=== PATIENT | male | born 1970 | race Caucasian/White ===

== ENCOUNTER 2020-01-23 16:13 | Outpatient (CLI) | payer OTHER, SELFPAY ==
--- NOTE | ~2020-01-23 | XR_ITS ---
EXAMINATION: XR lg joint inject/asp w image DATE: 01/23/2020 17:34 INDICATION: Right hip osteoarthritis TECHNIQUE: A time-out was performed to verify the patient's name, date of , and procedure to b e performed. The procedure including the risks, benefits, and alternatives was discussed with the pat ient. Risks discussed included bleeding and infection. The patient understood the risks and agreed to proceed. The skin overlying the right hip joint was prepped and draped in usual sterile fashion. A nesthetic was administered with 1% lidocaine subcutaneously. A 22 G needle was advanced under fluoro scopic guidance into the joint. Injection of 0.4 mL of Omnipaque 240 confirmed intra-articular posit ion of the needle. Subsequently, injectate consisting of 1 mL of a 4:1 mixture of 1% lidocaine: 80 m g/mL Depo-Medrol for a total dose of 80 mg Depo-Medrol was instilled. Washout of contrast was seen co nfirming intra-articular administration. The needle was removed and the entry site was cleaned and dr essed. There were no immediate complications. Fluoroscopy exposure time was 0.1 minutes. The total n umber of images was 2. FINDINGS: Real-time fluoroscopy demonstrates the needle in the right hip joint. Patient's pain prior to procedure:12/26. Patient's pain following the procedure: 08/26. IMPRESSION: 1. Right hip injection of local anesthetic and steroid with decrease in the patient's presenting pain . Reviewed, dictated and finalized at location A. IMPRESSION: 1. Right hip injection of local anesthetic and steroid with decrease in the pat ient's presenting pain.
== END 2020-01-23 16:14 | disposition home or self-care (01) ==
LOC: ANHIMG 16:16
PROVIDERS: PCP Family Medicine; Visit Provider Physician Assistant Surgical
DX: M16.11 Unilateral primary osteoarthritis, right hip (principal)
CPT/HCPCS: 20610; 77002; J1040; Q9966

== ENCOUNTER → 2022-06-17 15:12 | Outpatient (CLI) | payer OTHER, SELFPAY ==
--- NOTE | ~2022-06-17 | CT_ITS ---
EXAMINATION: CT abdomen pelvis wo con DATE: 06/17/2022 15:31 INDICATION: Right flank pain TECHNIQUE: Computed tomography (CT) of the abdomen and pelvis was performed without intravenous contr ast. The dose-length product (DLP) was 747.80 mGy-cm. Automated exposure control and iterative recons truction technique were employed. COMPARISON: 02/07/2018 FINDINGS: The lung bases are clear. The heart size is normal. The liver is diffusely low in attenuati on when compared with the spleen, consistent with hepatic steatosis. The spleen, pancreas, gallbladde r, and adrenal glands are normal. The left kidney is unremarkable. There is a 2 mm nonobstructing sto ne of the right kidney lower pole. There is a 5 mm stone of the distal right ureter. No pathologicall y enlarged abdominal or pelvic lymph nodes are identified. There is no free intraperitoneal gas or ev idence of bowel obstruction. There are bilateral inguinal hernias containing fat. There is mild lumba r spondylosis. IMPRESSION: 1. 5 mm stone of the distal right ureter. 2. Nonobstructing right nephrolithiasis. Reviewed, dictated and finalized at location B. OPERATOR
== END ==
PROVIDERS: PCP Physician Assistant; Visit Provider Physician Assistant
DX: N20.2 Calculus of kidney with calculus of ureter (principal)
CPT/HCPCS: 74176

== ENCOUNTER 2022-10-18 02:45 | Emergency (ER) | payer OTHER, SELFPAY ==
--- NOTE | ~2022-10-18 | CT_ITS ---
Non-contrast CT scan of the Abdomen and Pelvis Clinical indication: Kidney stone Technique: 2.5 mm axial scans were obtained through the abdomen and pelvis without intravenous or or al contrast. Dose reduction technique was used on this scan by utilizing automated exposure control a nd iterative reconstruction technique. The dose-length product (DLP) was 302.62 mGy-cm. COMPARISON: 06/17/2022 Findings: Images through the lung bases reveal no abnormalities. There is a 6 mm stone at the right UVJ, with minimal fullness the right renal collecting system and r ight ureter. Additional 3 mm nonobstructing right lower pole renal stone present. No left renal or le ft ureteral stone. No left hydronephrosis. There is fatty infiltration of liver. The spleen, pancreas, gallbladder, and adrenals appear normal. There is no aortic aneurysm. There is no evidence of bowel obstruction. Images through the pelvis were performed. There is no evidence of ascites or lymphadenopathy. Urinary bladder is otherwise unremarkable. Prostate gland and seminal vesicles are unremarkable. Impression: 6 mm stone at the right UVJ, with minimal fullness of the right renal collecting system/right ureter. This is probably the same stone that was in the distal right ureter on prior exam from 06/17/2022. 3 mm nonobstructing right lower pole renal stone. Fatty infiltration of liver. Reviewed, dictated and finalized at [facility]. Impression: 6 mm stone at the right UVJ, with minimal fullness of the right renal collectin g system/right ureter. This is probably the same stone that was in the distal r ight ureter on prior exam from 06/17/2022. 3 mm nonobstructing right lower pole renal stone. Fatty infiltration of liver.
[2022-10-18 02:50] VITALS: BP 143/96; PULSE 76; RESP 14; TEMP 36.7; O2SAT 100
[2022-10-18 03:36] LABS: Basophils Percent Auto 0.5 % (0.2-1.2); Eosinophils Absolute Auto 0.2 K/mm3 (0-0.3); Eosinophils Percent Auto 3.7 % (0-4.4); Hematocrit 45.2 % (42.0-52.0); Hemoglobin 15.3 g/dL (14.0-18.0); Immature Granulocyte Absolute 0.03 K/mm3 (0.00-0.031); Immature Granulocyte Percent A 0.5 % (0-0.5); Lymphocytes Absolute Auto 1.65 K/mm3 (0.9-3.2); Lymphocytes Percent Auto 25.6 % (18.3-44.2); Mean Corpuscular HGB Conc 33.8 g/dl (32-36); Mean Corpuscular Hemoglobin 29.9 pg (26-34); Mean Corpuscular Volume 88.5 fl (80-100); Mean Platelet Volume 9.3 fl (7.4-10.4); Monocytes Absolute Auto 0.7 K/mm3 (0.1-0.6); Monocytes Percent Auto 10.4 % (2.6-8.5); Neutrophils Absolute Auto 3.8 K/mm3 (1.3-6.7); Neutrophils Percent Auto 59.3 % (45.5-73.1); Platelet Count Result 189 k/mm3 (150-375); Red Blood Count 5.11 M/mm3 (4.6-6.20); Red Cell Distribution Width 12.7 % (11.5-14.5); White Blood Count 6.5 K/mm3 (4.5-10.0)
[2022-10-18 03:47] LABS: Alanine Aminotransferase 45 U/L (6-50); Albumin Level 4.3 g/dL (3.5-5.1); Alkaline Phosphatase 53 U/L (38-126); Anion Gap 7 mmol/L (8-16); Aspartate Amino Transferase 29 U/L (17-59); Bilirubin,Total 0.7 mg/dL (0.2-1.3); Blood Urea Nitrogen 17 mg/dL (9-20); Calcium 8.7 mg/dL (8.4-10.2); Carbon Dioxide 29 mmol/L (22-30); Chloride 103 mmol/L (98-107); Estimated CRCL calculation 77 ml/min; Estimated Glomerular Filt Rate > 60; Glucose 103 mg/dL (65-110); Lipase 115 U/L (23-300); Potassium 3.8 mmol/L (3.4-5.0); Sodium 139 mmol/L (137-145)
[2022-10-18 03:48] LABS: Bacteria Urine None Seen /hpf; Need Manual Microscopic Reviewed; Squamous Epithelial Cell Urine None seen /hpf (Few); WBC Urine 0-5 /hpf
[2022-10-18 03:51] LABS: Appearance Urine Clear (Clear); Bilirubin Urine 1+ (Negative); Blood Urine 2+ (Negative); Color Urine Orange (Yellow); Glucose Urine UA Trace mg/dL (Negative); Ketones Urine Negative (Negative); Leukocyte Esterase Ur Negative LEU/UL (Negative); Nitrate Urine Positive (Negative); Protein Urine 2+ mg/dL (Negative); Specific Grav Ur >= 1.030 (1.001-1.035)
[2022-10-18 03:53] LABS: Add Urine Microscopic? YES
--- NOTE | 2022-10-18 06:21 | ED.GENADULT ---
HPI - General Adult General Chief complaint: Urogenital-Male Stated complaint: Kidney stones? Time Seen by Provider: 10/18/22 03:22 History of Present Illness HPI narrative: This is a 52-year-old male with history of kidney stones presenting ED with right-sided flank pain that is sharp, wraps around into the front of his abdomen, 10 out 10 intensity and comes and goes. Feels like he has kidney stones. There are no exacerbating or alleviating factors. He has had 3 episodes of vomiting. No fevers, he has the urge to pee but no dysuria. He has a urologist with Dr. Peterson. 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 Surgical History Surgical History History of left inguinal hernia repair Family History Family History Sibling Depression Father Hypertension Family history of elevated blood lipids Mother Hypertension Family history of elevated blood lipids Grandparent Family history of cardiovascular disease Other Diabetes mellitus Social History Social History Smoking status: Never smoker Second hand tobacco smoke exposure: No Alcohol intake: current Alcohol use details: Rarely Substance use type: does not use Living arrangements: with family Occupation/Education: occupation Gender identity (if verbalized by the patient): Male Spiritual care concerns: No Agree to blood products: Yes Exam Narrative: APPEARANCE: No apparent distress. Head: atraumatic. EYES: EOMI, NOSE: Atraumatic NECK: Trachea midline RESPIRATORY: No increased rate of breathing CTAB CARDIOVASCULAR: RRR, ABDOMINAL: Non-distended, soft no guarding or rebound, no CVA tenderness MUSCULOSKELETAl: No obvious deformities NEURO: Alert. Moving 4/4 extremities SKIN:: Warm, dry. Normal color PSYCHIATRIC: Normal affect Course Vital Signs Vital signs: Vital Signs Temperature 98.1 F 10/18/22 02:50 Pulse Rate 76 10/18/22 02:50 Respiratory Rate 14 10/18/22 02:50 Blood Pressure 143/96 H 10/18/22 02:50 Pulse Oximetry 100 10/18/22 02:50 Oxygen Delivery Room Air 10/18/22 02:50 Temperature 98.1 F 10/18/22 02:50 Pulse Rate 76 10/18/22 02:50 Respiratory Rate 14 10/18/22 02:50 Blood Pressure 143/96 H 10/18/22 02:50 Pulse Oximetry 100 10/18/22 02:50 Oxygen Delivery Room Air 10/18/22 02:50 Medical Decision Making MDM Narrative Medical decision making narrative: -Presentation: 52-year-old male presenting ED with pain concerning for kidney stone. Lab work urinalysis and CT been ordered. Patient has been given symptomatic treatment. 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 Lives with his Yon. -External Chart Review: Previous primary care clinic notes -Hx from independent Sources: at bedside -Discussion of Management/Consultants: none -Independent interpretation of studies: CBC was within normal limits metabolic panel was unremarkable. urine was not indicative of infection. Patient has been taking his 's phenazopyridine which colored his urine orange. CT abdomen pelvis showed a 7 mm stone in the right UVJ with mild upstream
[2022-10-18 06:51] VITALS: BP 118/79; PULSE 84; RESP 18; TEMP 36.6; O2SAT 99
== END 2022-10-18 06:52 | disposition home or self-care (01) ==
PROVIDERS: Emergency Provider Emergency Medicine; PCP Family Medicine
DX: N20.2 Calculus of kidney with calculus of ureter (principal); M19.90 Unspecified osteoarthritis, unspecified site; Z87.442 Personal history of urinary calculi; K76.0 Fatty (change of) liver, not elsewhere classified
CPT/HCPCS: 36415; 74176; 80053; 81001; 83690; 85025; 99284

== ENCOUNTER → 2022-11-21 15:33 | Outpatient (CLI) | payer OTHER, SELFPAY ==
--- NOTE | ~2022-11-21 | XR_ITS ---
EXAMINATION: XR abdomen/kub 1V INDICATION: Right kidney stone TECHNIQUE: Supine views of the abdomen were obtained on 2 radiographs. COMPARISON: CT, 10/18/2022 FINDINGS: There is a 3 mm stone of the right kidney lower pole. The previously described 6 mm stone a t the right ureterovesicular junction is not definitely identified. The bowel gas pattern is normal. There is mild osteoarthritis of the hips. IMPRESSION: 1. Previously described right ureterovesicular junction stone not definitely identified. 2. Right nephrolithiasis. Reviewed, dictated and finalized at location F. IMPRESSION: 1. Previously described right ureterovesicular junction stone not definitely id entified. 2. Right nephrolithiasis.
== END ==
PROVIDERS: PCP Family Medicine; Visit Provider Urology
DX: N20.0 Calculus of kidney (principal)
CPT/HCPCS: 74018

== ENCOUNTER → 2023-03-28 15:16 | Outpatient (CLI) | payer OTHER, SELFPAY ==
--- NOTE | ~2023-03-28 | XR_ITS ---
EXAMINATION: XR abdomen/kub 1V INDICATION: Right-sided kidney stone, flank pain TECHNIQUE: Supine views of the abdomen were obtained on 2 radiographs. COMPARISON: 11/21/2022 FINDINGS: A 3 mm stone of the right kidney lower pole is again noted. No additional urolithiasis is i dentified. The bowel gas pattern is normal. The visualized lung bases are clear. There is mild osteoa rthritis of the hips. IMPRESSION: 1. Right nephrolithiasis. Reviewed, dictated and finalized at location F. IMPRESSION: 1. Right nephrolithiasis.
== END ==
PROVIDERS: PCP Urology; Visit Provider Urology
DX: N20.0 Calculus of kidney (principal)
CPT/HCPCS: 74018

== ENCOUNTER 2023-04-08 05:34 | Emergency (ER) | payer OTHER, SELFPAY ==
[2023-04-08] VITALS (8 sets, daily range): BP systolic 151–160; BP diastolic 97–105; PULSE 82; RESP 15; TEMP 36.3; O2SAT 97–100
--- NOTE | ~2023-04-08 | XR_ITS ---
XR lumbar spine 2-3V 04/08/2023 08:13 Indication: Back pain. Sciatica. Procedure: 3 views lumbar spine Comparison: 03/28/2019 Findings: Vertebral body heights are maintained. Normal lumbar lordosis. No acute fracture or traumat ic malalignment. No evidence for spondylolisthesis. Pedicles intact. There are small marginal osteoph ytes at L2-3 and L3-4. Sacral foramen are symmetric. Impression: 1: Mild lumbar spondylosis. Reviewed, dictated and finalized at location A. Impression: 1: Mild lumbar spondylosis.
--- NOTE | 2023-04-08 05:50 | PC.NURSE ---
Pt c/o burning pain down bilat legs. States was seen by PMD yesterday and give RX for gabapentin, but was afraid of the side effects so did not pick it up. Pt ambulatory to tx room from waiting room. Denies any saddle numbness.
--- NOTE | 2023-04-08 07:11 | PC.NURSE ---
Report to KERA Olvera
[2023-04-08] MEDS: SODIUM CHLORIDE 0.9% IV 1,000 ML 999 ML IV CONT (07:43)
[2023-04-08] MEDS: KETOROLAC 30 MG/ML VIAL (*BKC) IV PUSH (07:44)
[2023-04-08] MEDS: diazePAM INJ (*CRX) 10 MG/2 ML SYRINGE 5 MG IV PUSH (07:44)
[2023-04-08 07:54] LABS: Basophils Absolute Auto 0.1 K/mm3 (0.0-0.1); Basophils Percent Auto 0.5 % (0.2-1.2); Eosinophils Absolute Auto 0.2 K/mm3 (0-0.3); Eosinophils Percent Auto 2.1 % (0-4.4); Hematocrit 43.4 % (42.0-52.0); Hemoglobin 14.3 g/dL (14.0-18.0); Immature Granulocyte Absolute 0.03 K/mm3 (0.00-0.031); Immature Granulocyte Percent A 0.3 % (0-0.5); Lymphocytes Absolute Auto 3.99 K/mm3 (0.9-3.2); Lymphocytes Percent Auto 36.5 % (18.3-44.2); Mean Corpuscular HGB Conc 32.9 g/dl (32-36); Mean Corpuscular Hemoglobin 29.1 pg (26-34); Mean Corpuscular Volume 88.2 fl (80-100); Mean Platelet Volume 8.8 fl (7.4-10.4); Monocytes Absolute Auto 0.8 K/mm3 (0.1-0.6); Neutrophils Absolute Auto 5.9 K/mm3 (1.3-6.7); Neutrophils Percent Auto 53.6 % (45.5-73.1); Platelet Count Result 235 k/mm3 (150-375); Red Blood Count 4.92 M/mm3 (4.6-6.20); White Blood Count 10.9 K/mm3 (4.5-10.0)
--- NOTE | 2023-04-08 08:00 | ED.GENADULT ---
HPI - General Adult General Chief complaint: Extremity Injury, Lower Stated complaint: nerve pain in lower legs Time Seen by Provider: 04/08/23 07:00 History of Present Illness HPI narrative: Patient is a 52-year-old male who presents to the ER with reports of low back and leg pain. Patient reports 1 week ago he developed some sinus congestion and sore throat and cough. He then developed some achiness in his legs. Since then the pain is increased. He saw his PCP yesterday who prescribed him prednisone and gabapentin however one of the prescriptions was not ready so he has not picked it up yet. He has no lower extremity weakness or numbness. Pain is worse when he is laying down flat. He has been up pacing all night due to the discomfort. No trauma to the back. Has history of sciatica. No fevers or chills or sweats. No saddle anesthesia. Related Data Allergies Allergy/AdvReac Type Severity Reaction Status Date / Time milk Allergy Unknown Nausea Verified 04/08/23 05:36 naproxen Allergy Unknown Skin Verified 04/08/23 05:36 Reaction Review of Systems Review of Systems: All systems reviewed & are unremarkable except as noted in HPI and below Constitutional: Constitutional: Denies chills, Reports fatigue and Denies fever(s) ENT: Reports nasal congestion and Reports sore throat Respiratory: Respiratory: Reports cough and Denies dyspnea Gastrointestinal: Gastrointestinal: Reports no additional gastrointestinal complaints Musculoskeletal: Musculoskeletal: Reports back pain, Denies arthralgias and Denies joint swelling Comments: Bilateral leg pain Neurologic: Denies focal weakness and Denies numbness [facility] Past Medical History Medical History Chronic migraine w/o aura w/o status migrainosus, not intractable History of chicken pox Lumbar radiculopathy Polyosteoarthritis, unspecified 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 Surgical History Surgical History History of left inguinal hernia repair Family History Family History Sibling Depression Father Hypertension Family history of elevated blood lipids Mother Hypertension Family history of elevated blood lipids Grandparent Family history of cardiovascular disease Other Diabetes mellitus Social History Social History (Updated 10/20/23 @ 08:39 by Kandice Mckeon CMA) Smoking status: Never smoker Second hand tobacco smoke exposure: No Alcohol intake: current Alcohol use details: Rarely Substance use type: does not use Lack of Transportation: No Lack of Food: Never True Current Housing: I Have Housing Concerned About Future Housing: No Difficulty Paying Gas/Electric Bills: No Difficulty Paying for Meds: No Currently Unemployed: No Education: Associate Degree Difficulty w/ Childcare or Family Care: No Living arrangements: with family Occupation/Education: occupation Gender identity (if verbalized by the patient): Male Spiritual care concerns: No Agree to blood products: Yes Exam Narrative: GENERAL: Well-appearing, well-nourished, and in no acute distress. HEAD: Normocephalic, atraumatic. ENT: Mucous membranes moist. CHEST: Clear to auscultation. No respiratory distress. HEART: Regular rate and rhythm. Normal peripheral pulses. Back: No reproducible midline tenderness to the T/L-spine. Mild discomfort and SI region. EXTREMITIES: Normal range of motion. No edema. Positive straight leg raise bilaterally. SKIN: Warm, dry, no rash. NEURO: Alert and oriented x3. PSYCH: Normal mood and affect. Course Course Emergency Course: Patient ambulatory without issue throughout the ER. Patient has had Valium and Toradol but still reports he feels like he is dying despite
[2023-04-08 08:04] LABS: Alanine Aminotransferase 35 U/L (6-50); Albumin Level 4.1 g/dL (3.5-5.1); Alkaline Phosphatase 64 U/L (38-126); Anion Gap 8 mmol/L (8-16); Aspartate Amino Transferase 20 U/L (17-59); Bilirubin,Total 0.6 mg/dL (0.2-1.3); Blood Urea Nitrogen 18 mg/dL (9-20); Calcium 8.7 mg/dL (8.4-10.2); Carbon Dioxide 27 mmol/L (22-30); Chloride 100 mmol/L (98-107); Creatine Kinase 37 U/L (55-170); Estimated CRCL calculation 88 ml/min; Estimated Glomerular Filt Rate > 60; Glucose 104 mg/dL (65-110); Potassium 3.5 mmol/L (3.4-5.0); Sodium 135 mmol/L (137-145)
--- NOTE | 2023-04-08 08:38 | PC.NURSE ---
Ambulatory to bathroom with steady gait. c/o pain all over his body.
[2023-04-08] MEDS: MORPHINE SULFATE (*CRX) 4 MG/ML INJ IV PUSH (09:25)
[2023-04-08] MEDS: ONDANSETRON INJ 4 MG/2 ML VIAL IV PUSH (09:51)
== END 2023-04-08 10:27 | disposition home or self-care (01) ==
PROVIDERS: Emergency Provider Emergency Medicine; PCP Urology
DX: M54.30 Sciatica, unspecified side (principal)
CPT/HCPCS: 36415; 72100; 80053; 82550; 85025; 96361; 96374; 96375; 99284; J1885; J2270; J2405; J3360; J7030

== ENCOUNTER → 2023-04-12 08:12 | Outpatient (CLI) | payer OTHER, SELFPAY ==
--- NOTE | ~2023-04-12 | MR_ITS ---
MRI of the lumbar spine Clinical History: Sciatica Technique: Axial T2-weighted images, and sagittal T1-weighted, T2-weighted, and T2 fat-sat images wer e acquired. Findings: There is no fracture or subluxation of the lumbar spine. Vertebral bodies maintain normal h eight. No suspicious bone marrow signal abnormality seen. At L1-L2, there is no disc bulge or herniation. There is moderate to advanced facet arthropathy. No c entral canal stenosis or neural foraminal narrowing. At L2-L3, there is minimal disc bulge with moderate to severe facet arthropathy. No central canal diana nosis or definite neural foraminal narrowing. At L3-L4, there is mild disc bulge with advanced facet arthropathy. No central canal stenosis. There is mild to moderate left neural foraminal narrowing, and mild right neural foraminal narrowing. At L4-L5, there is mild disc bulge with moderate to advanced facet arthropathy. No central canal sten osis. There is moderate right neural foraminal narrowing, and mild left neural foraminal narrowing. At L5-S1, there is minimal disc bulge with moderate facet arthropathy. No central canal stenosis. The re is mild bilateral neural foraminal narrowing. Paravertebral soft tissues are unremarkable. Impression: Mild degenerative spondylosis overall, as detailed above. Reviewed, dictated and finalized at [facility]. Impression: Mild degenerative spondylosis overall, as detailed above.
== END ==
PROVIDERS: PCP Family Medicine; Visit Provider Family Medicine
DX: M54.30 Sciatica, unspecified side (principal); M43.06 Spondylolysis, lumbar region; M47.817 Spondylosis without myelopathy or radiculopathy, lumbosacral region
CPT/HCPCS: 72148

== ENCOUNTER 2024-04-08 15:27 | Outpatient (CLI) | payer OTHER, SELFPAY ==
--- NOTE | ~2024-04-08 | XR_ITS ---
XR abdomen/kub 1V 04/08/2024 15:39 INDICATION: Knee stones TECHNIQUE: KUB COMPARISON: None FINDINGS: Bowel gas pattern is normal. There is no evidence of free air, mass, organomegaly, ascites or obstruction. No abnormal calculi are seen. The bones appear intact. IMPRESSION: 1: No acute abdominal abnormality identified. Reviewed, dictated and finalized at location B.
== END 2024-04-08 15:28 | disposition home or self-care (01) ==
LOC: MICIMG 15:29
PROVIDERS: PCP Urology; Visit Provider Urology
DX: N20.0 Calculus of kidney (principal)
CPT/HCPCS: 74018

== ENCOUNTER 2024-07-27 17:10 | Emergency (ER) | payer OTHER, SELFPAY ==
[2024-07-27 18:04] VITALS: BP 137/81; PULSE 110; RESP 16; TEMP 37.1; O2SAT 98
--- NOTE | 2024-07-27 18:10 | ED.URI ---
HPI - URI/Sore Throat General Chief Complaint: Upper Respiratory Infection Stated Complaint: COUGH/CONGESTION/FACIAL PAIN/+FLU Time Seen by Provider: 07/27/24 18:08 Source: patient Mode of arrival: ambulatory Limitations: no limitations History of Present Illness HPI Narrative: Carlyle is a 54-year-old male patient presenting to the clinic today with complaints of cough, congestion, head facial pain. He reports that this has been going on for approximately 2-3 weeks. He tested positive for flu 2 weeks ago. Denies any chest pain or shortness of breath. Denies any fever MD elicited complaint: cough and nasal congestion Related Data Allergies Allergy/AdvReac Type Severity Reaction Status Date / Time naproxen Allergy Mild Hives Verified 07/27/24 17:58 milk AdvReac Intermediate Nausea Verified 07/27/24 17:58 Review of Systems Review of Systems: Pertinent positives per HPI. Patient denies any fever, chills, rash, headache, visual changes, dizziness, shortness of breath, chest pain, palpitations, nausea, vomiting, diarrhea, constipation, abdominal pain, or any urinary issues. 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 History of chicken pox Surgical History Surgical History History of left inguinal hernia repair Family History Family History Sibling Depression Father Hypertension Family history of elevated blood lipids Mother Hypertension Family history of elevated blood lipids Grandparent Family history of cardiovascular disease Other Diabetes mellitus Social History Social History Smoking status: Never smoker Second hand tobacco smoke exposure: No Alcohol intake: current Alcohol use details: Rarely Substance use type: does not use Lack of Transportation: No Lack of Food: Never True Current Housing: I Have Housing Concerned About Future Housing: No Difficulty Paying Gas/Electric Bills: No Difficulty Paying for Meds: No Currently Unemployed: No Education: Associate Degree Difficulty w/ Childcare or Family Care: No Living arrangements: with family Occupation/Education: occupation Gender identity (if verbalized by the patient): Male Spiritual care concerns: No Agree to blood products: Yes Comments At the time of my signature, I reviewed and agree with the nursing past medical, surgical, social, and family history. There is no relevant family history pertinent to the patient complaint. Exam Narrative: General: Well-developed, well nourished, in no apparent distress Head: Normocephalic, atraumatic Eyes: Pupils equally round and reactive to light bilaterally, EOM intact, sclera and conjunctive clear, no discharge, lids normal Ears: TMs intact and clear, ear canals clear, no drainage, grossly hearing normal. Nose: Nares patent, green nasal discharge, severe inflammation maxilla sinus tenderness. Mouth: Oral pharynx red without lesions or masses, good dentition, MMM. Postnasal drip Neck: Supple, trachea midline, no enlargement of anterior or posterior cervical nodes, no thyroid masses or goiter palpable. Cardio: Regular rate and rhythm, s1 and s2 normal, no murmur appreciated. Resp: Clear to auscultation bilaterally, no rhonchi, rales, wheezing or rubs Course Course Emergency Course: Portions of this record may have been created with voice recognition software. Level of Care: Express Care Visit Vital Signs Vital signs: Vital Signs Temperature 37.1 C 07/27/24 18:04 Pulse Rate 110 H 07/27/24 18:04 Respiratory Rate 16 07/27/24 18:04 Blood Pressure 137/81 07/27/24 18:04 Pulse Oximetry 98 07/27/24 18:04 Temperature 37.1 C 07/27/24 18:04 Pulse Rate 110 H 07/27/24 18:04 Respiratory Rate 16 07/27/24 18:04 Blood Pressure 137/81 07/27/24 18:04 Pulse Oximetry 98 07/27/24 18:04 Vital signs reviewed MDM - URI/Sore Throat MDM Narrative Medical decision making narrative: At the time of visit patient is resting comfortably on the exam table. Patient appears to be nontoxic. Plan: I suspect patient has acute bacterial rhinosinusitis. Prescription for Augmentin and prednisone was sent to the pharmacy. Supportive measures were discussed with the patient and they voiced understanding discharge instructions and agrees to treatment plan. Return precautions reviewed Differential Diagnosis Differential diagnosis: Likely upper respiratory infection, otitis media, sinusitis, viral infection, bronchitis, influenza, pharyngitis and other (COVID) Discharge Plan Discharge Clinical Impression: Acute bacterial rhinosinusitis Patient Disposition: Home, Self-Care Condition: Stable Instructions: Antibiotic Form, Rhinosinusitis (ED) Additional Instructions: Take prescription medications only as prescribed-Augmentin and prednisone Increase fluids and stay well hydrated Tylenol/motrin for pain/fever Flonase and OTC antihistamines as directed Vicks vapor rub to open sinuses Sinus rinses for congestion Cepacol spray, cough drops, throat lozenges, warm tea with honey/lemon, gargle salt water to soothe throat BRAT diet for diarrhea Clear liquids x 24 hours then advance as tolerated for nausea/vomiting Go to the ED if you develop a worsening in your condition- high fever not controlled by Tylenol or Motrin, dehydration, weakness, lethargy, shortness of breath, or chest pain. Follow up with your PCP in 3-5 days if symptoms persist. Patient Language: Afghan Prescriptions: New prednisone 20 mg tablet 40 mg PO DAILY 5 Days Qty: 10 0RF amoxicillin-pot clavulanate 875-125 mg tablet 1 tablet PO Q12H 10 Days Qty: 20 0RF No Action fluticasone propionate 50 mcg/actuation spray,suspension 2 spray intranasal DAILY 90 Days Qty: 48 3RF Rx Instructions: administer into each nostril oseltamivir 75 mg capsule 75 mg PO BID Qty: 10 0RF diclofenac sodium [Arthritis Pain (diclofenac)] 1 % gel 4 g topical QID Qty: 100 5RF Rx Instructions: apply to affected area cyclobenzaprine 10 mg tablet See Rx Instructions .ROUTE .COMPLEX Qty: 60 2RF Dose Instruction: TAKE 1 TABLET BY MOUTH THREE TIMES DAILY NEEDED FOR MUSCLE SPASM Rx Instructions: TAKE 1 TABLET BY MOUTH THREE TIMES DAILY NEEDED FOR MUSCLE SPASM diclofenac sodium 75 mg tablet,delayed release (DR/EC) 75 mg PO BID Qty: 180 1RF Follow-up/Referrals: Ayan Mclaughlin MD [Primary Care Provider] - Time of Disposition: 18:11 Quality NIHSS Nursing Documentation ED NIHSS nursing documentation: reviewed/agree
== END 2024-07-27 18:14 | disposition home or self-care (01) ==
PROVIDERS: Emergency Provider Nurse Practitioner Family; PCP Family Medicine
DX: J01.90 Acute sinusitis, unspecified (principal); M15.9 Polyosteoarthritis, unspecified
CPT/HCPCS: 99213; G0463

== ENCOUNTER 2024-08-04 00:13 | Emergency (ER) | payer OTHER, SELFPAY ==
--- NOTE | ~2024-08-04 | CT_ITS ---
CLINICAL INDICATION: Left flank pain and vomiting COMPARISON: 10/18/2022. TECHNIQUE: Multiple contiguous axial images of the abdomen and pelvis were performed following the ad ministration of with 100 mL Omnipaque-350 intravenous contrast The dose-length product (DLP) was 872.30 mGy-cm. Automated exposure control and iterative reconstruction technique were employed. FINDINGS/OBSERVATIONS: Visualized lower thorax: The bilateral lung bases are clear. The heart is of normal size, without pericardial effusion. Small hiatal hernia is present. Liver: The liver is decreased in attenuation and increased in size measuring 21 cm in longitudinal dimension . Gallbladder and biliary system: The gallbladder is only minimally distended, and otherwise unremarkable. Pancreas: The pancreas enhances homogeneously without ductal dilatation. Spleen: The spleen enhances homogeneously and is not enlarged measuring 8 cm in longitudinal dimension. Kidneys: Left-sided hydroureteronephrosis with global enlargement of the left kidney extending into the bladde r where a 3 mm calculus is identified. The right kidney and ureter are unremarkable. Adrenal glands: Unremarkable. Gastrointestinal tract: Trace fecal stasis. Appendix: The appendix is not definitively visualized. However, no pericecal inflammatory change is identified suggest the presence of acute appendicitis. Vasculature: Unremarkable. No aneurysmal dilatation or significant stenosis. Lymph nodes: No pathologically enlarged or morphologically suspicious lymph nodes within the retroperitoneum or at the root of the mesentery. Pelvic structures: As above. The prostate gland is not enlarged. Body wall and musculoskeletal: No significant degenerative disease within the lower thoracic or lumbosacral spine. IMPRESSION: Left-sided hydroureteronephrosis secondary to a 3 mm recently passed stone, now within the bladder. Reviewed, dictated and finalized at location A. DDED SOFTWARE ENGINEER
--- OUTSIDE RECORDS SUMMARY | 2024-08-04 00:15 | XMS_ITS | Continuity of Care Document ---
Author Organization [facility] Address [address] [place] [address] [place] [phone] Phone Care Team Providers Care Upstairs Maid Name Role Phone Dylan PT,MPT,ATC, Art Unavailable [...] Diagnoses Date Provider Providers Copied on Encounter [facility] [address] [address], [place], [place], [id number], tel:[phone] [place] No Information May- 3 Dylan Schmidt , [place], [place]. Referring Provider: Abida Betancur, [address] [place] [address] , [place], [address]. tel:[id number] [place] [address] [address], [place], [place], [id number], tel:[phone] [place] No Information 3 Jaimeglmonica Wyatt. . Referring Provider: Abida Betancur, [address] [place] [address] , [place], [address]. tel:[phone] [facility] [address], [place], [place], [address], tel:[phone] [place] No Information 3 Dylan Schmidt [place], [place]. Referring Provider: Abida Betancur, [address] [place] [address] , [place], [address]. tel:[id number] [place] [address] [address], [place], [place], [address], [place] tel:[phone] [place] No Information 0 3 Dylan [place] , [place], [place]. Referring Provider: Abida Betancur, [address] [place] [address] , [place], [address]. tel:[phone] [facility], [place], [place], [address], tel:[phone] [place] No Information 3 Dylan Schmidt , [place], [place]. Referring Provider: Abida Betancur, [address] [facility] , [place], [address]. tel:[phone] [place] [address], [address], [place], [place], [address], [place] tel:[phone] [place] No Information 3 Dylan Gradyn. , [place], [place]. Referring Provider: Abida Betancur, [address] [place] [address] , [place], [address]. tel:[phone] [place] [address], [address], [place], [place], [address], [place] tel:[phone] [place] No Information 3 Richardson Art. , [place], [place]. Referring Provider: Abida Betancur, [address] [place] [address] , [place], [address]. tel:[phone] [place] [address], [address], [place], [place], [address], [place] tel:[phone] [place] No Information 3 Dylan Gradyn. , [place], [place]. Referring Provider: Abida Betancur, [address] [place] [address] , [place], [address]. tel:[phone] [place] [address], [address], [place], [place], [address], [place] tel:[phone] [place] No Information 3 Dylan Gradyn. , [place], [place]. Referring Provider: Abida Betancur, [facility] [facility] , [place], [address]. tel:[phone] [place] [address] [address], [place], [place], [address], [place] tel:[phone] [place] No Information 3 Dylan Art. , [place], [place]. Referring Provider: Abida Betancur, [address] [place] [address] , [place], [address]. tel:[phone] [place], [place] [address] [address], [place], [place], [address], [place] tel:[phone] [place] No Information 0 3 Richardson Art. , [place], [place]. Referring Provider: bAida Betancur, [address] [place] [address] , [place], [address]. tel:[phone] [facility], [address], [place], [place], [address], [place] tel:[phone] [place] No Information 0 3 Richardson Art. , [place], [place]. Referring Provider: Abida Betancur, [address] [place] [address] , [place], [address]. tel:[phone] [place] [address], [address], [place], [place], [address], [place] tel:[phone] [place] No Information 0 3 Dylan Art. , [place], [place]. Referring Provider: Abida Betancur, [address] [place] [address] , [place], [address]. tel:[phone] [place] [address], [address], [place], [place], [address], [place] tel:[phone] [place] No Information 9 Richardson Art. , [place], [place]. Referring Provider: Aly Mcmillan, [address] [place], [address]. tel:[phone] [facility], [address], [place], [place], [address], [place] tel:[phone] [place] No Information 9 Richardson Art. , [place], [place]. Referring Provider: Aly Mcmillan, [address] [place], [address]. tel:[phone] [facility], [address], [place], [place], [address], [place] tel:[phone] [place] No Information 9 BEE Ortiz, [place]. Referring Provider: Aly Mcmillan, [address] [place], [address]. tel:[phone] Family History Family Member Type Diagnosis Age At Onset No Information Payers Payer name Insurance type Covered constitution party ID Aleida smith(s) [facility] [id number] Social History Type Description Quantity Date Captured Comments Sex Male Smoking Status No Information Chief Complaint And Reason For Visit No Information Reason For Referral Reason For Referral No Information History Of Present Illness Encounter Date Complaint History Of Prese nt Illness No Information Functional Status Date Functional Assessmen t No Information Instructions Date Instruction Additional Infor mation Giving encouragement to exercise Related to Overweight Giving encouragement to exercise Related to Overweight Assessments Type Assessment Date No Information Patient Care Teams Name Effective Dates (start - stop) Status Members No Information
--- OUTSIDE RECORDS SUMMARY | 2024-08-04 00:15 | XMS_ITS | Clinical Summary ---
Author Organization [facility] Care Team Providers Care Director Product Safety Name Role Phone Unavailable Primary Care Provider Unavailabl e Allergies Active Allergy Reactions Criticality Noted Date Comments Naproxen Unknown Nabumetone Unknown Medications atenolol (TENORMIN) 25 MG Tablet Take 25 mg by mouth. Active Cetirizine HCl (ZYRTEC PO) Take by mouth. Active cyclobenzaprine (FLEXERIL) 10 MG Tablet Take 10 mg by mouth. Active fluticasone (FLONASE) 50 MCG/ACT Suspension SPRAY 2 SPRAYS TO EACH NOSTRIL EVERY DAY 16 g 3 06/05/2015 Active Active Problems No known active problems Immunizations Immunization Administration Dates Next Due Influenza Vaccine greater than 3 yrs 03/19/2014 TDAP Vaccine 06/19/2013 Social History Tobacco Use Types Packs/Day Years Used Date Smoking Tobacco: Never Assessed Sex and Gender Information Value Date Recorded Sex Assigned at Not on file Legal Sex Male 10:20 PM CDT Gender Identity Not on file Sexual Orientation Not on file Plan of Treatment Health Maintenance Due Date Last Done Comments Hepatitis C Virus (HCV) Screening 1968 Hepatitis B Immunization (1 of 3 - 19+ 3-dose series) 1987 Colonoscopy 2013 Colorectal Cancer Screening 2013 Cologuard 2018 Immunochemical Fecal Occult Blood 2018 Pneumococcal Immunization (5 0+ years) (1 of 1 - PCV) 2018 Zoster Immunization (1 of 2) 2018 PSA Discussion 2023 Influenza Immunization (#1) 2024 03/19/2014 SARS-COV-2 Immunization ( - season) 2024 Respiratory Syncytial Virus (RSV) Immunization (Adult) (1 - 1-dose 75+ series) 2043 DTaP/Tdap/Td Immunization Discontinued 06/19/2013 Meningococcal Immunization (ACWY) Aged Out No longer eligible based on patient's age to complete this topic Pneumococcal Immunization Combined Aged Out No longer eligible based on patient's age to complete this topic Rotavirus Immunization Aged Out No lo nger eligible based on patient's age to complete this topic
--- OUTSIDE RECORDS SUMMARY | 2024-08-04 00:15 | XMS_ITS | Continuity of Care Document ---
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 [address] [facility], [address] [address], [place], [place], [id number], [place]. tel:[phone] Rating Letter [facility], [address] [address], [place], [place], [id number], [place] tel:[phone] [facility] [employer] [facility] No Information 2 Allison Botello. [address] [facility], [facility] [address], [place], [place], [id number], [place]. tel:[phone] [facility] [employer] [facility], [address] [place] [address], [place], [place], [id number], [place] tel:[phone] [facility] [employer] [facility] No Information 1 Administrativ e Provider. [address] [address], [place], [place], [id number], [place]. tel:[phone] Office/outpa tient visit,est, mod [facility], [address] [address], [place], [place], [id number], [place] tel:[phone] [facility] [employer] [facility] LOC PRIM OSTEOART-SHLD ERSHOULDER REGION DIS NECSPRAIN ROTATOR CUFF 1 Allison Botello. [address] [facility], [address] [address], [place], [place], [id number], [place]. tel:[phone] [facility] [employer] [facility], [address] [address], [place], [place], [id number], [place] tel:[phone] [facility] [employer] [facility] SPRAIN ROTATOR CUFFSHOULDER REGION DIS NECLOC PRIM OSTEOART-SHLD ER 1 Allison Botello. [address] [facility], [address] [address], [place], [place], [address], [place]. tel:[phone] [facility] [employer] [facility], [address], [id number], [place] tel:[phone] [facility] [employer] [facility] LOC PRIM OSTEOART-SHLD ERSHOULDER REGION DIS NECSPRAIN ROTATOR CUFF Sep-2 6 1 Allison Botello. [address] [facility], [address] [address], [place], [place], [id number], [place]. tel:[phone] [facility], [address] [address], [place], [place], [id number], [place] tel:[phone] [facility] SPRAIN ROTATOR CUFFSHOULDER REGION DIS NECLOC PRIM OSTEOART-SHLD ER Sep-1 2- 1 Allison Botello. [address] [facility], [facility] [place] [address], [place], [place], [id number], [place]. tel:[phone] [facility], [address] [address], [place], [place], [id number], [place] tel:[phone] [facility] LOC PRIM OSTEOART-SHLD ERSHOULDER REGION DIS NECSPRAIN ROTATOR CUFF Aug-2 1 Allison Botello. [address] [facility], [address] [address], [place], [place], [id number], [place]. tel:[phone] [facility] [employer] [facility], [address] [address], [place], [place], [id number], [place] tel:[phone] [facility] SPRAIN ROTATOR CUFFSHOULDER REGION DIS NECLOC PRIM OSTEOART-SHLD ER Jan-0 1 Allison Botello. [address] [facility], [address] [address], [place], [place], [id number], [place]. tel:[phone] [facility], [address] [address], [place], [place], [id number], [place] tel:[phone] [facility] SPRAIN ROTATOR CUFFSHOULDER REGION DIS NECLOC PRIM OSTEOART-SHLD ER 1 Allison Botello. [address] [facility], [address] [address], [place], [place], [address], [place]. tel:[phone] Office consultation , [facility], [address] [address], [place], [place], [address], [place] tel:[phone] [facility] SPRAIN ROTATOR CUFFJOINT PAIN-SHLDER 1 Temistephani Botello. [address] [facility], [address], [place], [place], [id number], [place]. tel:[phone] Family History Family Member Type Diagnosis Age At Onset No Information Payers Payer name Insurance type Covered constitution party ID Authoriza tion(s) No Information Social [...]
[2024-08-04 00:24] VITALS: BP 155/94; PULSE 78; RESP 20; TEMP 36.9; O2SAT 97
--- NOTE | 2024-08-04 00:56 | ED_ITS ---
HPI - Back Pain/Injury General Chief Complaint: Back Pain/Injury <Art Mccarthy PA-C - Last Filed: 08/04/24 14:01> Stated Complaint: left flank pain <EDY Finnegan Last Filed: 08/04/24 14:01> Time Seen by Provider: 08/04/24 00:55 <Art Mccarthy PA-C - Last Filed: 08/04/24 14:01> Source: patient <EDY Finnegan Last Filed: 08/04/24 14:01> Mode of arrival: ambulatory <EDY Finnegan Last Filed: 08/04/24 14:01> Limitations: no limitations <EDY Finnegan Filed: 08/04/24 14:01> History of Present Illness HPI Narrative: This is a 54-year-old male who presents to the ED for chief complaint of sudden-onset left flank pain beginning around 8:00 a.m. this evening. Patient states that he has radiating pain from left flank to left anterior abdomen. States this pain is similar to kidney stone pain he has had in the past on the right side. Denies recent illness. Denies fevers, chills, issues with bowel movements. <Art Mccarthy PA-C Last Filed: 08/04/24 14:01> Related Data Allergies/Adverse Reactions: Allergies Allergy/AdvReac Type Severity Reaction Status Date / Time naproxen Allergy Mild Hives Verified 08/04/24 00:29 milk AdvReac Intermediate Nausea Verified 08/04/24 00:29 <Art Mccarthy PA-C - Last Filed: 08/04/24 14:01> Review of Systems 2 Review of Systems: All systems as dictated in HPI <EDY Finnegan Last Filed: 08/04/24 14:01> [facility] Past Medical History Medical History: Medical History Chronic migraine w/o aura w/o status migrainosus, not intractable Lumbar radiculopathy Polyosteoarthritis, unspecified 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 History of chicken pox <Art Mccarthy PA-C - Last Filed: 08/04/24 14:01> Surgical History Surgical History: Surgical History History of left inguinal hernia repair <Art Mccarthy PA-C - Last Filed: 08/04/24 14:01> Family History Family History: Family History Sibling Depression Father Hypertension Family history of elevated blood lipids Mother Hypertension Family history of elevated blood lipids Grandparent Family history of cardiovascular disease Other Diabetes mellitus <EDY Finnegan Last Filed: 08/04/24 14:01> Social History Social History: Social History Smoking status: Never smoker Second hand tobacco smoke exposure: No Alcohol intake: current Alcohol use details: Rarely Substance use type: does not use Lack of Transportation: No Lack of Food: Never True Current Housing: I Have Housing Concerned About Future Housing: No Difficulty Paying Gas/Electric Bills: No Difficulty Paying for Meds: No Currently Unemployed: No Education: Associate Degree Difficulty w/ Childcare or Family Care: No Living arrangements: with family Occupation/Education: occupation Gender identity (if verbalized by the patient): Male Spiritual care concerns: No Agree to blood products: Yes <Art Mccarthy PA-C - Last Filed: 08/04/24 14:01> Exam 2 Narrative: GENERAL: Patient actively vomiting in the bathroom next door. When he returns to the room, he is exhibiting renal colic. HEAD: Normocephalic, atraumatic. EYES: PERRLA and EOMI. ENT: Nares clear, no rhinorrhea or epistaxis. Mucous membranes moist. Oropharynx without tonsillar hypertrophy exudate or other lesions. NECK: Supple. No adenopathy or masses. CHEST: No respiratory distress. Clear to auscultation. No wheezes rales or rhonchi HEART: Regular rate and rhythm. No murmur heard. Normal peripheral pulses. ABDOMEN: Left flank tenderness present. Negative right flank tenderness. Soft, otherwise nontender, nondistended, normal active bowel sounds. MSK: Normal range of motion. No edema. SKIN: Warm, dry, no rash. NEURO: Alert and oriented x4. No focal deficits. PSYCH: Normal mood and affect. <Art Mccarthy PA-C - Last Filed: 08/04/24 14:01> Course Course Emergency Course: ZYCH: Patient signed out pending CT imaging. CT showed a 2 mm stone UVJ. Urine not indicative infection. Pain was controlled in the ED. Patient given appropriate medications and discharged with urology follow-up <Eliseo Godoy MD - Last Filed: 08/04/24 03:45> Vital Signs Vital signs: Vital Signs Temperature 98.4 F 08/04/24 00:24 Pulse Rate 78 08/04/24 00:24 Respiratory Rate 20 08/04/24 00:24 Blood Pressure 155/94 H 08/04/24 00:24 Pulse Oximetry 97 08/04/24 00:24 Oxygen Delivery Room Air 08/04/24 00:24 Temperature 98.4 F 08/04/24 00:24 Pulse Rate 71 08/04/24 02:27 Respiratory Rate 18 08/04/24 02:27 Blood Pressure 142/81 H 08/04/24 02:27 Pulse Oximetry 99 08/04/24 02:27 Oxygen Delivery Room Air 08/04/24 00:24 <Art Mccarthy PA-C - Last Filed: 08/04/24 14:01> Vital Signs Temperature 98.4 F 08/04/24 00:24 Pulse Rate 78 08/04/24 00:24 Respiratory Rate 20 08/04/24 00:24 Blood Pressure 155/94 H 08/04/24 00:24 Pulse Oximetry 97 08/04/24 00:24 Oxygen Delivery Room Air 08/04/24 00:24 Temperature 98.4 F 08/04/24 00:24 Pulse Rate 71 08/04/24 02:27 Respiratory Rate 18 08/04/24 02:27 Blood Pressure 142/81 H 08/04/24 02:27 Pulse Oximetry 99 08/04/24 02:27 Oxygen Delivery Room Air 08/04/24 00:24 <Eliseo Godoy MD - Last Filed: 08/04/24 03:45> MDM - Back Pain/Injury MDM Narrative Medical decision making narrative: This is a 54-year-old male who presents to the ED for apparent renal colic. Vitals are normal. Over the above with left flank tenderness. Preliminary review of CT imaging shows small stone at the left UPJ. Patient will be handed off to attending Dr. Godoy pending official CT results. < Art Mccarthy PA-C - Last Filed: 08/04/24 14:01> Lab Data Result diagrams: 08/04/24 01:12 08/04/24 01:12 <Art Mccarthy PA-C - Last Filed: 08/04/24 14:01> Labs: Lab Results 08/04/24 08/04/24 Range/Units 01:12 01:49 WBC 14.0 H (4.5-10.0) K/mm3 RBC 5.12 (4.6-6.20) M/mm3 Hgb 15.4 (14.0-18.0) g/dL Hct 45.9 (42.0-52.0) % MCV 89.6 (80-100) fl MCH 30.1 (26-34) pg MCHC 33.6 (32-36) g/dl RDW 12.4 (11.5-14.5) % Plt Count 323 (150-375) k/mm3 MPV 9.2 (7.4-10.4) fl Immature Gran % (Auto) 2.6 H (0-0.5) % Neut % (Auto) 61.7 (45.5-73.1) % Lymph % (Auto) 25.7 (18.3-44.2) % Morehouse % (Auto) 7.6 (2.6-8.5) % Eos % (Auto) 1.8 (0-4.4) % Baso % (Auto) 0.6 (0.2-1.2) % Lymph # (Auto) 3.59 H (0.9-3.2) K/mm3 Morehouse # (Auto) 1.1 H (0.1-0.6) K/mm3 Eos # (Auto) 0.3 (0-0.3) K/mm3 Baso # (Auto) 0.1 (0.0-0.1) K/mm3 Abs Immat Gran (auto) 0.37 H (0.00-0.031) K/mm3 Absolute Neuts (auto) 8.6 H (1.3-6.7) K/mm3 Absolute Nucleated RBC 0.000 (0.0-0.012) K/mm3 Nucleated RBC % 0.0 (0.0-0.2) % PT 13.3 (11.1-14.7) Seconds INR 1.0 APTT 21.9 L (22.3-36.8) Seconds Sodium 142 (137-145) mmol/L Potassium 3.8 (3.4-5.0) mmol/L Chloride 103 (98-107) mmol/L Carbon Dioxide 27 (22-30) mmol/L Anion Gap 12 (4-12) mmol/L BUN 26 H (9-20) mg/dL Creatinine 1.12 (0.7-1.3) mg/dL Estim Creat Clear Calc 70 ml/min Estimated GFR > 60 (59 - ) Glucose 144 H (65-110) mg/dL Calcium 9.0 (8.4-10.2) mg/dL Total Bilirubin 0.5 (0.2-1.3) mg/dL AST 27 (17-59) U/L ALT 57 H (6-50) U/L Alkaline Phosphatase 76 (38-126) U/L Total Protein 8.0 (6.3-8.2) g/dL Albumin 4.1 (3.5-5.1) g/dL Lipase 122 (23-300) U/L Urine Color Yellow (Yellow) Urine Appearance Clear (Clear) Urine pH 7.5 (5.0-9.0) Ur Specific [place] 1.024 (1.001-1.035) Urine Protein Negative (Negative) mg/dL Urine Glucose (UA) Negative (Negative) mg/dL Urine Ketones Negative (Negative) mg/dL Ur Blood (Man) Negative (Negative) Urine Nitrate Negative (Negative) Urine Bilirubin Negative (Negative) Urine Urobilinogen 0.2 (<2.0) mg/dL Leukocyte Esterase Rfl Negative (Negative) RICCO/UL <Art Mccarthy PA-C - Last Filed: 08/04/24 14:01> Lab Results 08/04/24 08/04/24 Range/Units 01:12 01:49 WBC 14.0 H (4.5-10.0) K/mm3 RBC 5.12 (4.6-6.20) M/mm3 Hgb 15.4 (14.0-18.0) g/dL Hct 45.9 (42.0-52.0) % MCV 89.6 (80-100) fl MCH 30.1 (26-34) pg MCHC 33.6 (32-36) g/dl RDW 12.4 (11.5-14.5) % Plt Count 323 (150-375) k/mm3 MPV 9.2 (7.4-10.4) fl Immature Gran % (Auto) 2.6 H (0-0.5) % Neut % (Auto) 61.7 (45.5-73.1) % Lymph % (Auto) 25.7 (18.3-44.2) % Morehouse % (Auto) 7.6 (2.6-8.5) % Eos % (Auto) 1.8 (0-4.4) % Baso % (Auto) 0.6 (0.2-1.2) % Lymph # (Auto) 3.59 H (0.9-3.2) K/mm3 Morehouse # (Auto) 1.1 H (0.1-0.6) K/mm3 Eos # (Auto) 0.3 (0-0.3) K/mm3 Baso # (Auto) 0.1 (0.0-0.1) K/mm3 Abs Immat Gran (auto) 0.37 H (0.00-0.031) K/mm3 Absolute Neuts (auto) 8.6 H (1.3-6.7) K/mm3 Absolute Nucleated RBC 0.000 (0.0-0.012) K/mm3 Nucleated RBC % 0.0 (0.0-0.2) % PT 13.3 (11.1-14.7) Seconds INR 1.0 APTT 21.9 L (22.3-36.8) Seconds Sodium 142 (137-145) mmol/L Potassium 3.8 (3.4-5.0) mmol/L Chloride 103 (98-107) mmol/L Carbon Dioxide 27 (22-30) mmol/L Anion Gap 12 (4-12) mmol/L BUN 26 H (9-20) mg/dL Creatinine 1.12 (0.7-1.3) mg/dL Estim Creat Clear Calc 70 ml/min Estimated GFR > 60 (59 - ) Glucose 144 H (65-110) mg/dL Calcium 9.0 (8.4-10.2) mg/dL Total Bilirubin 0.5 (0.2-1.3) mg/dL AST 27 (17-59) U/L ALT 57 H (6-50) U/L Alkaline Phosphatase 76 (38-126) U/L Total Protein 8.0 (6.3-8.2) g/dL Albumin 4.1 (3.5-5.1) g/dL Lipase 122 (23-300) U/L Urine Color Yellow (Yellow) Urine Appearance Clear (Clear) Urine pH 7.5 (5.0-9.0) Ur Specific [place] 1.024 (1.001-1.035) Urine Protein Negative (Negative) mg/dL Urine Glucose (UA) Negative (Negative) mg/dL Urine Ketones Negative (Negative) mg/dL Ur Blood (Man) Negative (Negative) Urine Nitrate Negative (Negative) Urine Bilirubin Negative (Negative) Urine Urobilinogen 0.2 (<2.0) mg/dL Leukocyte Esterase Rfl Negative (Negative) RICCO/UL <Eliseo Godoy MD - Last Filed: 08/04/24 03:45> Discharge Plan Discharge Clinical Impression: Renal colic on left side <Art Mccarthy PA-C - Last Filed: 08/04/24 14:01> Patient Disposition: Home, Self-Care <Art Mccarthy PA-C - Last Filed: 08/04/24 14:01> Condition: Stable <Art Mccarthy PA-C - Last Filed: 08/04/24 14:01> Instructions: Antibiotic Form, Kidney Stones (ED) <Art Mccarthy PA-C - Last Filed: 08/04/24 14:01> Additional Instructions: You were seen in the emergency department for a kidney stone. Please use Motrin/Tylenol for pain. Use oxycodone for breakthrough pain. Use Zofran for nausea. Please follow-up with your Urologist for further management. Please return if you develop severe pain, fevers or intractable nausea and vomiting. <Art Mccarthy PA-C - Last Filed: 08/04/24 14:01> Patient Language: Sudanese <Art Mccarthy PA-C - Last Filed: 08/04/24 14:01> Prescriptions: New tamsulosin [Flomax] 0.4 mg capsule 0.4 mg PO DAILY Qty: 10 0RF ondansetron 4 mg tablet,disintegrating 4 mg PO Q8H PRN (Reason: nausea and vomiting) Qty: 10 0RF ibuprofen 800 mg tablet 800 mg PO TID PRN (Reason: pain) 7 Days Qty: 21 0RF acetaminophen 500 mg tablet 1,000 mg PO TID PRN (Reason: lisseth) 7 Days Qty: 42 0RF oxycodone 5 mg tablet 5 mg PO Q4H PRN (Reason: pain) Qty: 14 0RF No Action prednisone 20 mg tablet 40 mg PO DAILY 5 Days Qty: 10 0RF amoxicillin-pot clavulanate 875-125 mg tablet 1 tablet PO Q12H 10 Days Qty: 20 0RF fluticasone propionate 50 mcg/actuation spray,suspension 2 spray intranasal DAILY 90 Days Qty: 48 3RF Rx Instructions: administer into each nostril oseltamivir 75 mg capsule 75 mg PO BID Qty: 10 0RF diclofenac sodium [Arthritis Pain (diclofenac)] 1 % gel 4 g topical QID Qty: 100 5RF Rx Instructions: apply to affected area cyclobenzaprine 10 mg tablet See Rx Instructions .ROUTE .COMPLEX Qty: 60 2RF Dose Instruction: TAKE 1 TABLET BY MOUTH THREE TIMES DAILY NEEDED FOR MUSCLE SPASM Rx Instructions: TAKE 1 TABLET BY MOUTH THREE TIMES DAILY NEEDED FOR MUSCLE SPASM diclofenac sodium 75 mg tablet,delayed release (DR/EC) 75 mg PO BID Qty: 180 1RF <Art Mccarthy PA-C - Last Filed: 08/04/24 14:01> Follow-up/Referrals: Ruben Martinez MD [Physician] - Ayan Mclaughlin MD [Primary Care Provider] - <Art Mccarthy PA-C - Last Filed: 08/04/24 14:01>
--- OUTSIDE RECORDS SUMMARY | 2024-08-04 01:03 | XMS_ITS | Continuity of Care Document ---
Author Organization [facility] Address [address] [place] [address] [place] [id number] Phone Care Team Providers Care Property Appraiser Name Role Phone Dylan PT,MPT,ATC, Art Unavailable [...] Diagnoses Date Provider Providers Copied on Encounter [facility] [address] [address], [place], [place], [id number], tel:[phone] [place] No Information May- 3 Dylan Schmidt , [place], [place]. Referring Provider: Abida Betancur, [address] [place] [address] , [place], [address]. tel:[id number] [place] [address] [address] [facility], [place], [place], [id number], tel:[phone] [facility] No Information 3 Jaimeglmonica Wyatt. . Referring Provider: Abida Betancur, [address] [place] [address] , [place], [address]. tel:[phone] [facility] [address] [facility] [address], [place], [place], [id number], tel:[phone] [place] No Information 3 Dylan Schmidt [place], [place]. Referring Provider: Abida Betancur, [address] [place] [address] , [place], [address]. tel:[phone] [place], [place] [id number] [address], [place], [place], [id number], [place] tel:[phone] [facility] No Information 0 3 Dylan Schmidt , [place], [place]. Referring Provider: Abida Betancur, [address] [place] [address] , [place], [address]. tel:[phone] [facility], [place], [place], [address], tel:[phone] [place] No Information 3 Dylan Schmidt , [place], [place]. Referring Provider: Abida Betancur, [address] [facility] , [place], [address]. tel:[phone] [place] [address], [address], [place], [place], [address], [place] tel:[phone] [place] No Information 3 Dylan Gradyn. , [place], [place]. Referring Provider: Abida Betancur, [address] [place] [address] , [place], [address]. tel:[phone] [place] [address], [address], [place], [place], [id number], [place] tel:[phone] [place] No Information 3 Richardson Art. , [place], [place]. Referring Provider: Abida Betancur, [address] [place] [address] , [place], [address]. tel:[phone] [place] [address], [address], [place], [place], [id number], [place] tel:[phone] [place] No Information 3 Dylan Gradyn. , [place], [place]. Referring Provider: Abida Betancur, [address] [place] [address] , [place], [address]. tel:[phone] [place] [address], [address], [place], [place], [id number], [place] tel:[phone] [place] No Information 3 Dylan Gradyn. , [place], [place]. Referring Provider: Abida Betancur, [facility] [facility] , [place], [address]. tel:[phone] [place] [address] [address], [place], [place], [id number], [place] tel:[phone] [place] No Information 3 Dylan Art. , [place], [place]. Referring Provider: Abida Betancur, [address] [place] [address] , [place], [address]. tel:[phone] [place], [place] [address] [address], [place], [address], [place] tel:[phone] [place] No Information 0 3 Richardson Art. , [place], [place]. Referring Provider: Abida Betancur, [address] [place] [address] , [place], [address]. tel:[phone] [facility], [address], [place], [place], [address], [place] tel:[phone] [place] No Information 0 3 Richardson Art. , [place], [place]. Referring Provider: Abida Betancur, [address] [place] [address] , [place], [address]. tel:[phone] [place] [address], [address], [place], [place], [id number], [place] tel:[phone] [place] No Information 0 3 Dylan Art. , [place], [place]. Referring Provider: Abida Betancur, [address] [place] [address] , [place], [address]. tel:[phone] [place] [address], [address], [place], [place], [id number], [place] tel:[phone] [place] No Information 9 Richardson Art. , [place], [place]. Referring Provider: Aly Mcmillan, [address] [place], [address]. tel:[phone] [facility], [address], [place], [place], [id number], [place] tel:[phone] [place] No Information 9 Richardson Art. , [place], [place]. Referring Provider: Aly Mcmillan, [address] [place], [address]. tel:[phone] [facility], [address], [place], [place], [id number], [place] tel:[phone] [place] No Information 9 BEE Ortiz, [place]. Referring Provider: Aly Mcmillan, [address] [place], [address]. tel:[phone] Family History Family Member Type Diagnosis Age At Onset No Information Payers Payer name Insurance type Covered libertarian ID Aleida smith(s) [facility] [id number] Social History Type Description Quantity Date Captured [...]
--- OUTSIDE RECORDS SUMMARY | 2024-08-04 01:03 | XMS_ITS | Continuity of Care Document ---
Author Organization [facility] Address [address] [place] [address] Phone Care Team Providers Care Drive Tester Name Role Phone Administrative, Provider Unavailable Unavail [...] on Encounter [facility], [address], [place], [place], [id number], [place] tel:[phone] [facility] No Information 2 Administrativ e Provider. [address] [facility], [address] [address], [place], [place], [address], [place]. tel:[phone] Rating Letter [facility], [address] [address], [place], [place], [id number], [place] tel:[phone] [facility] No Information 2 Allison Botello. [address] [facility], [facility] 100, [place], [place], [address], [place]. tel:[phone] [facility], [address] [place] [address], [place], [place], [address], [place] tel:[phone] [facility] No Information 1 Administrativ e Provider. [address] [address], [place], [place], [address], [place]. tel:[phone] Office/outpa tient visit,est, mod [facility], [address] [address], [place], [place], [address], [place] tel:[phone] [facility] LOC PRIM OSTEOART-SHLD ERSHOULDER REGION DIS NECSPRAIN ROTATOR CUFF 1 Allison Botello. [address] [facility], [address] [address], [place], [place], [address], [place]. tel:[phone] [facility], [address] [address], [place], [place], [id number], [place] tel:[phone] [facility] SPRAIN ROTATOR CUFFSHOULDER REGION DIS NECLOC PRIM OSTEOART-SHLD ER 1 Allison Botello. [address] [facility], [address] [address], [place], [place], [address], [place]. tel:[phone] [facility], [address], [id number], [place] tel:[phone] [facility] LOC PRIM OSTEOART-SHLD ERSHOULDER REGION DIS NECSPRAIN ROTATOR CUFF Sep-2 6 1 Allison Botello. [address], [address] [address], [place], [place], [address], [place]. tel:[phone] [facility], [address] [address], [place], [place], [address], [place] tel:[phone] [facility] SPRAIN ROTATOR CUFFSHOULDER REGION DIS NECLOC PRIM OSTEOART-SHLD ER Sep-1 2- 1 Allison Botello. [address], [facility], [place], [place], [address], [place]. tel:[phone] [facility], [address] [address], [place], [place], [address], [place] tel:[phone] [facility] LOC PRIM OSTEOART-SHLD ERSHOULDER REGION DIS NECSPRAIN ROTATOR CUFF Aug-2 1 Allison Botello. [address], [address] [address], [place], [place], [address], [place]. tel:[phone] [facility], [address] [address], [place], [place], [address], [place] tel:[phone] [facility] SPRAIN ROTATOR CUFFSHOULDER REGION DIS NECLOC PRIM OSTEOART-SHLD ER Jan-0 1 Allison Botello. [address], [address] [address], [place], [place], [address], [place]. tel:[phone] [facility], [address] [address], [place], [place], [address], [place] tel:[phone] [facility] SPRAIN ROTATOR CUFFSHOULDER REGION DIS NECLOC PRIM OSTEOART-SHLD ER 1 Allison Botello. [address], [address] [address], [place], [place], [address], [place]. tel:[phone] Office consultation , [facility], [address] [address], [place], [place], [address], [place] tel:[phone] [facility] SPRAIN ROTATOR CUFFJOINT PAIN-SHLDER 1 Temistephani Botello. [address], [place], [place], [address], [place]. tel:[phone] Family History Family Member Type Diagnosis Age At Onset No Information Payers Payer name Insurance type Covered green party ID Authoriza tion(s) No Information Social [...]
--- OUTSIDE RECORDS SUMMARY | 2024-08-04 01:03 | XMS_ITS | Clinical Summary ---
Author Organization [facility] Care Team Providers Care Food And Beverage Attendant Name Role Phone Unavailable Primary Care Provider [...]
[2024-08-04] MEDS: ONDANSETRON INJ 4 MG/2 ML VIAL IV PUSH (01:09)
[2024-08-04] MEDS: HYDROmorphone HCL INJ (*CRX) 1 MG/ML SYR 0.5 MG IV PUSH (01:09)
[2024-08-04] MEDS: LACTATED RINGERS 1,000 ML 999 ML IV CONT (01:12)
[2024-08-04 01:22] LABS: Basophils Absolute Auto 0.1 K/mm3 (0.0-0.1); Basophils Percent Auto 0.6 % (0.2-1.2); Eosinophils Absolute Auto 0.3 K/mm3 (0-0.3); Eosinophils Percent Auto 1.8 % (0-4.4); Hematocrit 45.9 % (42.0-52.0); Hemoglobin 15.4 g/dL (14.0-18.0); Immature Granulocyte Absolute 0.37 K/mm3 (0.00-0.031); Immature Granulocyte Percent A 2.6 % (0-0.5); Lymphocytes Absolute Auto 3.59 K/mm3 (0.9-3.2); Lymphocytes Percent Auto 25.7 % (18.3-44.2); Mean Corpuscular HGB Conc 33.6 g/dl (32-36); Mean Corpuscular Hemoglobin 30.1 pg (26-34); Mean Corpuscular Volume 89.6 fl (80-100); Mean Platelet Volume 9.2 fl (7.4-10.4); Monocytes Absolute Auto 1.1 K/mm3 (0.1-0.6); Monocytes Percent Auto 7.6 % (2.6-8.5); Neutrophils Absolute Auto 8.6 K/mm3 (1.3-6.7); Neutrophils Percent Auto 61.7 % (45.5-73.1); Platelet Count Result 323 k/mm3 (150-375); Red Blood Count 5.12 M/mm3 (4.6-6.20); Red Cell Distribution Width 12.4 % (11.5-14.5)
[2024-08-04 01:29] LABS: Partial Thromboplastin Time 21.9 Seconds (22.3-36.8); Prothrombin Time 13.3 Seconds (11.1-14.7)
[2024-08-04 01:38] LABS: Alanine Aminotransferase 57 U/L (6-50); Albumin Level 4.1 g/dL (3.5-5.1); Alkaline Phosphatase 76 U/L (38-126); Anion Gap 12 mmol/L (4-12); Aspartate Amino Transferase 27 U/L (17-59); Bilirubin,Total 0.5 mg/dL (0.2-1.3); Blood Urea Nitrogen 26 mg/dL (9-20); Carbon Dioxide 27 mmol/L (22-30); Chloride 103 mmol/L (98-107); Estimated CRCL calculation 70 ml/min; Estimated Glomerular Filt Rate > 60; Glucose 144 mg/dL (65-110); Lipase 122 U/L (23-300); Potassium 3.8 mmol/L (3.4-5.0); Sodium 142 mmol/L (137-145)
[2024-08-04 01:55] LABS: Add Urine Microscopic? NO; Appearance Urine Clear (Clear); Bilirubin Urine Negative (Negative); Blood Urine Negative (Negative); Color Urine Yellow (Yellow); Glucose Urine UA Negative (Negative); Ketones Urine Negative (Negative); Leukocyte Esterase Ur Negative LEU/UL (Negative); Nitrate Urine Negative (Negative); Protein Urine Negative (Negative); Specific Grav Ur 1.024 (1.001-1.035); Urobilinogen Urine 0.2 mg/dL (<2.0); pH Urine 7.5 (5.0-9.0)
[2024-08-04] MEDS: KETOROLAC 30 MG/ML VIAL (*BKC) IV PUSH (02:11)
[2024-08-04] MEDS: diphenhydrAMINE HCl INJ 50 MG/ML VIAL 25 MG IV PUSH (02:11)
[2024-08-04 02:27] VITALS: BP 142/81; PULSE 71; RESP 18; O2SAT 99
== END 2024-08-04 04:35 | disposition home or self-care (01) ==
PROVIDERS: Emergency Provider Physician Assistant; PCP Family Medicine
DX: N13.2 Hydronephrosis with renal and ureteral calculous obstruction (principal); M19.90 Unspecified osteoarthritis, unspecified site
CPT/HCPCS: 36415; 74177; 80053; 81003; 83690; 85025; 85610; 85730; 96361; 96374; 96375; 99284; J1171; J1200; J1885; J2405; J7120; Q9967

== ENCOUNTER 2024-09-10 09:55 | Outpatient (CLI) | payer OTHER, SELFPAY ==
--- NOTE | ~2024-09-10 | US_ITS ---
EXAMINATION: US soft tissue groin LT DATE: 09/10/2024 10:27 INDICATION: Left groin pain TECHNIQUE: Multiple grayscale and Doppler ultrasound images of the left inguinal region were obtained at rest and with Valsalva. COMPARISON: CT dated 08/04/2024. FINDINGS: Normal-sized left inguinal lymph node. There is suggestion of a small amount of abdominal fat moving within the proximal most left inguinal canal with Valsalva. There is however no evident corresponding internal hernia on the recent prior CT suggesting this is either transient with Valsalva or new sinc e the prior study. IMPRESSION: 1. Possible new or transient small fat-containing hernia at the entrance of the left inguinal canal. Reviewed, dictated and finalized at location B.
== END 2024-09-10 09:56 | disposition home or self-care (01) ==
LOC: GOSHIMG 09:55
PROVIDERS: PCP Student in an Organized Health Care Education/Training Program; Visit Provider Student in an Organized Health Care Education/Training Program
DX: R10.30 Lower abdominal pain, unspecified (principal)
CPT/HCPCS: 76882

== ENCOUNTER 2024-09-25 16:16 | Outpatient (CLI) | payer OTHER, SELFPAY ==
--- OUTSIDE RECORDS SUMMARY | 2024-09-25 17:08 | XMS_ITS | Continuity of Care Document ---
Author Organization [facility] Address [address] [place] [address] Phone Care Team Providers Care Data Center Operator Name Role Phone Administrative, Provider Unavailable [...] on Encounter [facility], [address], [place], [place], [address], [place] tel:[phone] [facility] No Information 2 Administrativ e Provider. [address] [facility], [address] [address], [place], [place], [address], [place]. tel:[phone] Rating Letter [facility], [address] [address], [place], [place], [address], [place] tel:[phone] [facility] No Information 2 Allison Botello. [address] [facility], [facility] 100, [place], [place], [id number], [place]. tel:[phone] [facility], [address] [place] [address], [place], [place], [address], [place] tel:[phone] [facility] No Information 1 Administrativ e Provider. [address] [address], [place], [place], [address], [place]. tel:[phone] Office/outpa tient visit,est, mod [facility], [address] [address], [place], [place], [address], [place] tel:[phone] [facility] LOC PRIM OSTEOART-SHLD ERSHOULDER REGION DIS NECSPRAIN ROTATOR CUFF 1 Allison Botello. [address] [facility], [address] [address], [place], [place], [address], [place]. tel:[phone] [facility], [address] [address], [place], [place], [address], [place] tel:[phone] [facility] SPRAIN ROTATOR CUFFSHOULDER REGION DIS NECLOC PRIM OSTEOART-SHLD ER 1 Allison Botello. [address] [facility], [address] [address], [place], [place], [address], [place]. tel:[phone] [facility], [address], [id number], [place] tel:[phone] [facility] LOC PRIM OSTEOART-SHLD ERSHOULDER REGION DIS NECSPRAIN ROTATOR CUFF Sep-2 6 1 Allison Botello. [address] [facility], [address] [address], [place], [place], [address], [place]. tel:[phone] [facility], [address] [address], [place], [place], [address], [place] tel:[phone] [facility] SPRAIN ROTATOR CUFFSHOULDER REGION DIS NECLOC PRIM OSTEOART-SHLD ER Sep-1 2- 1 Allison Botello. [address] [facility], [facility] [address], [place], [place], [address], [place]. tel:[phone] [facility], [address] [address], [place], [place], [address], [place] tel:[phone] [facility] LOC PRIM OSTEOART-SHLD ERSHOULDER REGION DIS NECSPRAIN ROTATOR CUFF Aug-2 1 Allison Botello. [address] [facility], [address] [address], [place], [place], [address], [place]. tel:[phone] [facility], [address] [address], [place], [place], [address], [place] tel:[phone] [facility] SPRAIN ROTATOR CUFFSHOULDER REGION DIS NECLOC PRIM OSTEOART-SHLD ER Jan-0 1 Allison Botello. [address] [facility], [address] [address], [place], [place], [address], [place]. tel:[phone] [facility], [address] [address], [place], [place], [address], [place] tel:[phone] [facility] SPRAIN ROTATOR CUFFSHOULDER REGION DIS NECLOC PRIM OSTEOART-SHLD ER 1 Allison Botello. [address] [facility], [address] [address], [place], [place], [address], [place]. tel:[phone] Office consultation , [facility], [address] [address], [place], [place], [address], [place] tel:[phone] [facility] SPRAIN ROTATOR CUFFJOINT PAIN-SHLDER 1 Temistephani Botello. [address] [facility], [address], [place], [place], [address], [place]. tel:[phone] Family History Family Member Type Diagnosis Age At Onset No Information Payers Payer name Insurance type Covered republican ID Authoriza tion(s) No Information Social History [...]
--- OUTSIDE RECORDS SUMMARY | 2024-09-25 17:08 | XMS_ITS | Continuity of Care Document ---
Author Organization [facility] Address [address] [place] [address] [place] [address] Phone Care Team Providers Care Music Supervisor Name Role Phone Dylan PT,MPT,ATC, Art Unavailable [...] Diagnoses Date Provider Providers Copied on Encounter [facility], [place], [place], [address], tel:[phone] [facility] No Information May- 3 Dylan Schmidt , [place], [place]. [facility], [place], [place], [address], tel:[phone] [facility] No Information 3 Modglin Edmundo. . [facility], [place], [place], [address], tel:[phone] [facility] No Information May- 3 Dylan [place] , [place], [place]. [facility], [place], [place], [address], [place] tel:[phone] [facility] No Information 3 Dylan [place]. [facility], [place], [place], [address], tel:[phone] [facility] No Information 3 Dylan [place]. [facility], [place], [place], [address], [place] tel:[phone] [facility] No Information 3 [place]. [facility], [place], [place], [address], tel:[phone] [facility] No Information 3 [place]. [facility], [place], [place], [address], [place] tel:[phone] [facility] No Information Nov-2 3 Dylan Art. , [place], [place]. [facility], [address], [place], [place], [address], tel:[phone] [facility] No Information Nov-1 3 Richardson Art. , [place], [place]. [facility], [address], [place], [place], [address], [place] tel:[phone] [facility] No Information Nov-1 3 Richardson Art. , [place]. [facility], [address], [place], [place], [address], tel:[phone] [facility] No Information Nov-0 3 yDlan Art. , [place], [place]. [facility], [address], [place], [place], [address], [place] tel:[phone] [facility] No Information Nov-0 3 Dylan Art. , [place]. [facility], [address], [place], [place], [address], [place] tel:[phone] [facility] No Information Nov-0 3 Dylan Art. , [place]. [facility], [address], [place], [place], [address], [place] tel:[phone] [facility] No Information Nov-1 9 Richardson Art. , [place], [place]. Referring Provider: Aly Mcmillan, [address] [place], [address]. tel:[phone] [facility], [address], [place], [place], [address], [place] tel:[phone] [facility] No Information Nov-0 9 Richardson Art. , [place], [place]. Referring Provider: Aly Mcmillan, [address] [place], [address]. tel:[phone] [facility], [address] [facility] [facility], [place], [place], [address], [place] tel:[phone] [facility] No Information 9 Dylan Schmidt [place], [place]. Referring Provider: Aly Mcmillan, 3 [facility], [place], [address]. tel:[phone] Family History Family Member Type Diagnosis Age At Onset No Information Payers Payer name Insurance type Covered democrat ID Authorkang smith(s) [facility] [id number] Social History Type Description Quantity Date Captured [...]
== END 2024-09-25 16:17 | disposition home or self-care (01) ==
LOC: ANHGOSHLAB 16:18
PROVIDERS: PCP Nurse Practitioner Family; Visit Provider Nurse Practitioner Family
DX: E03.8 Other specified hypothyroidism (principal)
CPT/HCPCS: 36415; 84443

== ENCOUNTER 2025-01-03 15:24 | Outpatient (CLI) | payer OTHER, SELFPAY ==
--- NOTE | ~2025-01-03 | US_ITS ---
US soft tissue head and neck 01/03/2025 15:43 Indication: Palpable abnormality right lateral posterior neck. Procedure: Multiple sonographic images from ultrasound of the right lateral/posterior neck Comparison: No prior studies for comparison. Findings: Ultrasound evaluation of the right lateral posterior neck demonstrates multiple oval hypoec hoic masses. Largest lesion measures 1.5 cm greatest dimension without oval configuration, parallel o rientation, circumscribed margins and mild internal vascularity. No associated inflammatory changes o r surrounding soft tissue edema. Impression: 1: Multiple hypoechoic masses of the right lateral posterior neck with benign-appearing morphologic f eatures. Differential diagnosis includes benign reactive lymph nodes, atypical lymphoid hyperplasia, low-grade lymphoma and metastatic lymphadenopathy. Consider follow-up short-term ultrasound in 6-week 8 weeks to assess stability or resolution. Clinically correlate for signs of infection or systemic s igns or history of malignancy. If lymph nodes are persistent or growing on follow-up consider fine ne edle aspiration or core biopsy for histologic evaluation. Reviewed, dictated and finalized at location A. Impression: 1: Multiple hypoechoic masses of the right lateral posterior neck with benign-a ppearing morphologic features. Differential diagnosis includes benign reactive lymph nodes, atypical lymphoid hyperplasia, low-grade lymphoma and metastatic l ymphadenopathy. Consider follow-up short-term ultrasound in 6-week 8 weeks to a ssess stability or resolution. Clinically correlate for signs of infection or s ystemic signs or history of malignancy. If lymph nodes are persistent or growin g on follow-up consider fine needle aspiration or core biopsy for histologic ev aluation.
--- NOTE | ~2025-01-03 | CT_ITS ---
EXAMINATION: CT sinus wo con DATE: 01/03/2025 15:46 INDICATION: Chronic sinusitis TECHNIQUE: Computed tomography (CT) of the paranasal sinuses was performed without intravenous contra st. The dose-length product was 278.24 mGy-cm. Automated exposure control and iterative reconstructio n technique were employed. COMPARISON: None FINDINGS: There is mucosal thickening of the maxillary, ethmoid and sphenoid sinuses with air-fluid l evel in the maxillary sinuses. Both ostiomeatal units are occluded by soft tissue. Mastoids are pneum atized. Mild curvature of the nasal septum. IMPRESSION: 1. Moderate-severe sinusitis, most advanced in the maxillary and sphenoid sinuses. Reviewed, dictated and finalized at location A. IMPRESSION: 1. Moderate-severe sinusitis, most advanced in the maxillary and sphenoid sinus es.
== END 2025-01-03 15:25 | disposition home or self-care (01) ==
PROVIDERS: PCP Nurse Practitioner Family; Visit Provider Otolaryngology
DX: R59.1 Generalized enlarged lymph nodes (principal); J32.0 Chronic maxillary sinusitis; J32.3 Chronic sphenoidal sinusitis; J34.2 Deviated nasal septum
CPT/HCPCS: 70486; 76536

== ENCOUNTER 2025-01-13 09:42 | Outpatient (CLI) | payer OTHER, SELFPAY ==
--- NOTE | ~2025-01-13 | MR_ITS ---
EXAMINATION: MR brain/brain stem wo/w con DATE: 01/13/2025 10:37 INDICATION: Encephalocele TECHNIQUE: Magnetic resonance imaging (MRI) of the brain and brainstem was performed without and with 19 mL Multihance intravenous contrast. Sequences included sagittal and axial T1-weighted SE, axial d iffusion-weighted FS SE, axial 3D SWAN, axial T2-weighted FLAIR, and axial T2-weighted FSE. Postcontr ast axial, sagittal and coronal T1-weighted SE was obtained. Apparent diffusion coefficient (ADC) map s were created. COMPARISON: CT sinus dated 01/03/2025 FINDINGS: There are no areas of restricted diffusion to suggest acute infarction. No intracranial hemorrhage or abnormal intracranial mass lesion. There are few scattered small foci of nonspecific cerebral white matter T2 hyperintensity which within normal limits for age and likely sequela of chronic small vesse l ischemic disease. There are no intraparenchymal signal abnormalities seen on the other pulse sequen preeti. No abnormally enhancing brain lesions. The ventricles are symmetric and normal in size. There ar e no abnormal extra-axial fluid collections. Flow voids are seen in the cerebral arteries on the T2-w eighted sequences consistent with their expected patency. Extensive sinus disease with moderate mucos al thickening in the bilateral ethmoid, sphenoid and maxillary sinuses and with central dependently l ayering fluid nearly completely filling the left maxillary and sphenoid sinuses and filling the poste rior two thirds of the right maxillary sinus. Mucous retention cyst in the right sphenoid sinus. Orbi ts are normal. There are multiple prominent but still normal-sized bilateral jugular chain and geotechnical engineering technician ior triangle lymph nodes which are likely reactive. IMPRESSION: 1. Normal for age brain. No acute intracranial process. 2. Bilateral ethmoid, maxillary and sphenoid sinusitis. 3. Multiple prominent but still normal-sized bilateral upper jugular chain and posterior triangle lym phadenopathy which is likely reactive. Reviewed, dictated and finalized at location A. IMPRESSION: 1. Normal for age brain. No acute intracranial process. 2. Bilateral ethmoid, maxillary and sphenoid sinusitis. 3. Multiple prominent but still normal-sized bilateral upper jugular chain and posterior triangle lymphadenopathy which is likely reactive.
--- OUTSIDE RECORDS SUMMARY | 2025-01-13 10:11 | XMS_ITS | Clinical Summary ---
Author Organization [facility] Care Team Providers Care Senior Wind Turbine Technician Name Role Phone Unavailable Primary Care Provider [...] of 3 - 19+ 3-dose series) 1987 Cologuard 2013 Colonoscopy 2013 Colorectal Cancer Screening 2013 Immunochemical Fecal Occult Blood 2013 Pneumococcal Immunization (5 0+ years) (1 of 1 - PCV) 2018 Zoster Immunization (1 of 2) 2018 SARS-COV-2 Immunization (1 - 2023-25 season) 2024 Influenza Immunization (#1) 2025 03/19/2014 Respiratory Syncytial Virus (RSV) Immunization (Adult) (1 - 1-dose 75+ series) 2043 DTaP/Tdap/Td Immunization Discontinued 06/19/2013 Human Papillomavirus (HPV) Immunization Aged Out No longer eligible b ased on patient's age to complete this topic Meningococcal Immunization (ACWY) Aged Out No longer eligible based on patient's age to complete this topic Rotavirus Immunization Aged Out No lo nger eligible based on patient's age to complete this topic
== END 2025-01-13 09:43 | disposition home or self-care (01) ==
PROVIDERS: PCP Nurse Practitioner Family; Visit Provider Otolaryngology
DX: Q01.9 Encephalocele, unspecified (principal); J32.2 Chronic ethmoidal sinusitis; J32.0 Chronic maxillary sinusitis; J32.3 Chronic sphenoidal sinusitis; R59.1 Generalized enlarged lymph nodes
CPT/HCPCS: 70553; A9577

== ENCOUNTER 2025-03-03 01:24 | Day surgery (SDC) | payer OTHER, SELFPAY ==
--- OUTSIDE RECORDS SUMMARY | 2011-11-07 19:00 | XMS_ITS | Continuity of Care Document ---
Author Organization [facility] Address [address] [place] [address] Phone Care Team Providers Care Drainman Name Role Phone Administrative, Provider Unavailable Unavail able Procedures Procedure Date Medical Record Copy Medical Record Copy Per Page Rating Letter Medical Record Copy Medical Record Copy Per Page Affidavit Office/outpatient visit,est, mod 2010 Supplemental Report Postop followup visit Supplemental Report Postop followup visit Supplemental Report Postop followup visit Supplemental Report Postop followup visit Supplemental Report Postop followup visit Supplemental Report Arthscpy shldr decompression Arthscpy shldr dstl claviculectomy Arthscpy shldr, debridement limited Office consultation, moderate 1 X-ray exam of shoulder, complete 2010 Advance Directives Directive Yes / No Effective Date File Name No Information Encounters Encounter Description Practice Location Reason(s) For Visit Diagnoses Date Provider Providers Copied on Encounter [facility], [address], [place], [place], [id number], [place] tel:[phone] [facility] No Information 2 Administrativ e Provider. [address] [facility], [address] [address], [place], [place], [id number], [place]. tel:[phone] Rating Letter [facility], [address] [address], [place], [place], [id number], [place] tel:[phone] [facility] No Information 2 Allison Botello. [address] [facility], [address] [address], [place], [place], [id number], [place]. tel:[phone] [facility], [address] [place] [address], [place], [id number], [place] tel:[phone] [facility] No Information 1 Administrativ e Provider. [address] [place] [address], [place], [place], [id number], [place]. tel:[phone] Office/outpa tient visit,est, mod [facility], [address] [address], [place], [place], [id number], [place] tel:[phone] [facility] LOC PRIM OSTEOART-SHLD ERSHOULDER REGION DIS NECSPRAIN ROTATOR CUFF 1 Allison Botello. [address] [facility], [address] [place] [address], [place], [place], [id number], [place]. tel:[phone] [facility], [address] [place] [address], [place], [place], [id number], [place] tel:[phone] [facility] SPRAIN ROTATOR CUFFSHOULDER REGION DIS NECLOC PRIM OSTEOART-SHLD ER 1 Allison Botello. [address] [facility], [address] [place] [address], [place], [place], [id number], [place]. tel:[phone] [facility], [address] [place] [address], [id number], [place] tel:[phone] [facility] LOC PRIM OSTEOART-SHLD ERSHOULDER REGION DIS NECSPRAIN ROTATOR CUFF Sep-2 1 Allison Botello. [address] [facility], [address] [facility], [place], [place], [id number], [place]. tel:[phone] [facility], [address] [address], [place], [place], [id number], [place] tel:[phone] [facility] SPRAIN ROTATOR CUFFSHOULDER REGION DIS NECLOC PRIM OSTEOART-SHLD ER Sep-1 1 Allison Botello. [address] [facility], [address], [place], [place], [id number], [place]. tel:[phone] [facility], [address] [address], [place], [place], [id number], [place] tel:[phone] [facility] LOC PRIM OSTEOART-SHLD ERSHOULDER REGION DIS NECSPRAIN ROTATOR CUFF Jan-2 1 Allison Botello. [address] [facility], [address] [place] [address], [place], [place], [id number], [place]. tel:[phone] [facility], [address], [id number], [place] tel:[phone] [facility] SPRAIN ROTATOR CUFFSHOULDER REGION DIS NECLOC PRIM OSTEOART-SHLD ER Jan-0 1 Allison Botello. [address] [facility], [address] [place] [address], [place], [place], [id number], [place]. tel:[phone] [facility], [address], [id number], [place] tel:[phone] [facility] SPRAIN ROTATOR CUFFSHOULDER REGION DIS NECLOC PRIM OSTEOART-SHLD ER Dec- 1 Allison Botello. [address] [facility], [facility] [address], [place], [place], [id number], [place]. tel:[phone] Office consultation , [facility], [address], [id number], [place] tel:[phone] [facility] SPRAIN ROTATOR CUFFJOINT PAIN-SHLDER 1 Allison Botello. [address] [facility], [address], [place], [place], [id number], [place]. tel:[phone] Family History Family Member Type Diagnosis Age At Onset No Information Payers Payer name Insurance type Covered alliance party ID Authoriza tion(s) No Information Social History Type Description Quantity Date Captured Comments Sex Male Smoking Status No Information Chief Complaint And Reason For Visit No Information Reason For Referral Reason For Referral No Information History Of Present Illness Encounter Date Complaint History Of Prese nt Illness No Information Functional Status Date Functional Assessmen t No Information Instructions Date Instruction Additional Infor mation No Information Assessments Type Assessment Date No Information Patient Care Teams Name Effective Dates (start - stop) Status Members No Information
--- OUTSIDE RECORDS SUMMARY | 2023-05-31 09:00 | XMS_ITS | Continuity of Care Document ---
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 Name Role Phone Dylan PT,MPT,ATC, Art Unavailable Unavai lable Procedures Procedure Date Therapeutic Activities Neuromuscular Re-Ed Therapeutic Exercise Therapeutic Activities Neuromuscular Re-Ed Therapeutic Exercise Therapeutic Activities Neuromuscular Re-Ed Therapeutic Exercise Therapeutic Activities Neuromuscular Re-Ed Therapeutic Exercise Therapeutic Activities Neuromuscular Re-Ed Therapeutic Exercise Therapeutic Activities Neuromuscular Re-Ed Therapeutic Exercise Therapeutic Activities Neuromuscular Re-Ed Therapeutic Exercise Therapeutic Activities Neuromuscular Re-Ed Therapeutic Exercise Therapeutic Activities Neuromuscular Re-Ed Therapeutic Exercise Therapeutic Activities Neuromuscular Re-Ed Therapeutic Exercise Therapeutic Activities Neuromuscular Re-Ed Therapeutic Exercise Therapeutic Activities Neuromuscular Re-Ed PT Evaluation Moderate Complexity Therapeutic Activities Neuromuscular Re-Ed Therapeutic Activities Therapeutic Activities Neuromuscular Re-Ed PT Evaluation Low Complexity Neuromuscular Re-Ed Therapeutic Activities Advance Directives Directive Yes / No Effective Date File Name No Information Encounters Encounter Description Practice Location Reason(s) For Visit Diagnoses Date Provider Providers Copied on Encounter [facility], [place], [place], [id number], tel:[phone] [place] No Information May- 3 Dylan Schmidt , [place], [place]. [facility], [place], [place], [id number], tel:[phone] [place] No Information 3 Modglin Edmundo. . [facility], [place], [place], [id number], tel:[phone] [place] No Information May- 3 Dylan Schmidt , [place], [place]. [facility], [place], [place], [address], [place] tel:[phone] [place] No Information 3 Dylan [place]. [facility], [place], [place], [address], tel:[phone] [place] No Information 3 Dylan [place]. [facility], [place], [place], [address], [place] tel:[phone] [place] No Information 3 Dylan [place]. [facility], [place], [place], [address], tel:[phone] [place] No Information 3 Dylan [place]. [facility], [place], [place], [address], [place] tel:[phone] [place] No Information Nov-2 3 Dylan Art. , [place], [place]. [facility], [address], [place], [place], [id number], tel:[phone] [place] No Information Nov-1 3 Richardson Art. , [place]. [facility], [address], [place], [place], [id number], [place] tel:[phone] [place] No Information Nov-1 3 Richardson Art. , [place]. [facility], [address], [place], [place], [address], tel:[phone] [place] No Information Nov-0 3 Dylan Art. , [place]. [facility], [address], [place], [place], [id number], [place] tel:[phone] [place] No Information Nov-0 3 Dylan Art. , [place]. [facility], [address], [place], [place], [id number], [place] tel:[phone] [place] No Information Nov-0 3 Dylan Art. , [place]. [facility], [address], [place], [place], [id number], [place] tel:[phone] [place] No Information Nov-1 9 Richardson Art. , [place], [place]. Referring Provider: Aly Mcmillan, [address] [place], [address]. tel:[phone] [facility], [address], [place], [place], [address], [place] tel:[phone] [place] No Information Nov-0 9 Richardson Art. , [place], [place]. Referring Provider: Aly Mcmillan, [address] [place] [place], [address]. tel:[phone] [facility], [address], [place], [place], [id number], [place] tel:[phone] [place] No Information 9 Dylan Schmidt [place], [place]. Referring Provider: Aly Mcmillan, [address] [facility], [place], [address]. tel:[phone] Family History Family Member Type Diagnosis Age At Onset No Information Payers Payer name Insurance type Covered alliance party ID Authorkang smith(s) [facility] [id number] Social History Type Description Quantity Date Captured Comments Sex Male Smoking Status No Information Chief Complaint And Reason For Visit No Information Reason For Referral Reason For Referral No Information History Of Present Illness Encounter Date Complaint History Of Prese nt Illness No Information Functional Status Date Functional Assessmen t No Information Instructions Date Instruction Additional Infor jake Giving encouragement to exercise Related to Overweight Giving encouragement to exercise Related to Overweight Assessments Type Assessment Date No Information Patient Care Teams Name Effective Dates (start - stop) Status Members No Information
--- NOTE | 2025-02-25 10:22 | PC.NURSE ---
Report to the Outpatient Waiting Room, entrance under the green pavilion located off [facility], at time 0930 on date _03/03/25 Planned Procedure Time: 1130.? Time changes happen often and if your time is changed the preop area will call you the afternoon before. - You and your visitor will be asked to self-screen and do not enter if you have any COVID symptoms. Please call surgeon if you need to reschedule. - A mask is optional within the hospital at this time. Patients may have clear liquids (water, carbonated beverages, clear teas, apple juice) until 3 hours prior to surgery with a maximum of 20 ounces. - No food from midnight until time of surgery and no smoking, or chewing tobacco (or any form of nicotine). No chewing gum, candy or mints. - Infants may have breast milk until 4 hours before surgery, formula 6 hours prior to surgery. - Children will be allowed to drink immediately following surgery.? If applicable, please bring a bottle or sippy cup to assist with drinking. Juice, water, soda, and popsicles are readily available.? For infants on formula, please bring formula the day of surgery.? Pacifiers are allowed. Take only the following medications with a SIP of water on the morning of surgery: ____NONE DO NOT STOP ANY OF YOUR OTHER PRESCRIPTION MEDICATIONS PRIOR TO SURGERY EXCEPT THE FOLLOWING Hold all vitamins and supplements for 3 days per anesthesiologist. Medications to discontinue per physician Date to take last dose Please no make-up, nail paraguayan, hairspray, perfume, deodorant, or body powder the day of surgery.? No jewelry (including any body piercings) or valuables the day of surgery, leave them at home.? Please take a shower or bath the night before, or the morning of, surgery with an antibacterial soap.? Wear comfortable, loose fitting clothing.? Children are encouraged to wear pajamas. - Jewelry must be removed prior to entering the operating room.? Rings and piercings that are not removed may be cut off. - The hospital will not accept responsibility for valuables.? - Please leave all valuables, including medications, at home the day of surgery. If you are going home after surgery, a licensed contract driver must drive you home.? - NO public transportation without another adult if you receive anesthesia. - We recommend that an adult stay with you for 24 hours following discharge. - We also recommend that you do not drive, make important decision, drink alcoholic beverages, or take any drugs that were not prescribed by your health care provider for at least 24 hours after your discharge time. For Pediatric surgeries, we recommend two adults accompany the child home. Follow any additional instructions given to you from your surgeon. Telephone instructions given to _PATIENT__and asked if any additional questions and then verbalized understanding. Patient advised to call surgeon office or pre surgery nurse liaison [phone] if any additional questions.
[2025-02-25 10:30] VITALS: BMI 27.6
--- NOTE | 2025-03-01 15:46 | PM.IMHP ---
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 History of chicken pox Surgical History Surgical History History of left inguinal hernia repair Family History Family History Sibling Depression Father Hypertension Family history of elevated blood lipids Mother Hypertension Family history of elevated blood lipids Grandparent Family history of cardiovascular disease Other Diabetes mellitus Social History Social History Social History: Caffeine-occasionally Smoking status: Never smoker Second hand tobacco smoke exposure: No Alcohol intake: current Alcohol use details: 2 PER MONTH Substance use: never Substance use type: does not use Do You Feel Safe in your Home?: Yes Lack of Transportation: No Lack of Food: Never True Current Housing: I Have Housing Concerned About Future Housing: No Difficulty Paying Gas/Electric Bills: No Difficulty Paying for Meds: No Currently Unemployed: No Education: Associate Degree Difficulty w/ Childcare or Family Care: No Living arrangements: with family Occupation/Education: occupation Gender identity (if verbalized by the patient): Male Spiritual care concerns: No Agree to blood products: Yes Meds Home Medications and Allergies Home Medications ?Medication ?Instructions ?Recorded ?Confirmed ?Type diclofenac sodium 75 mg 75 mg PO BID #180 tabs 06/14/24 02/25/25 Rx tablet,delayed release Allergies Allergy/AdvReac Type Severity Reaction Status Date / Time naproxen Allergy Mild Hives Verified 02/25/25 10:14 milk AdvReac Intermediate Nausea Verified 02/25/25 10:14 ONIONS Allergy SOB, Uncoded 02/25/25 10:14 TINGLING LIPS Exam Narrative: chronic appearing sinuses septal deviation Assessment and Plan Assessment and plan (1) Chronic sinusitis: Code(s): J32.9 - Chronic sinusitis, unspecified Status: Acute (2) Nasal septal deviation: Code(s): J34.2 - Deviated nasal septum Status: Acute (3) Recurrent sinusitis: Code(s): J32.9 - Chronic sinusitis, unspecified Status: Acute Plan plan OR bilateral image guided endoscopic maxillary antrostomies total ethmoidectomies and likely bilateral sphenoidotomies, will confirm again Monday that the right sphenoid sinus does not contain any neurologic pathology like an encephalocele or meningocele. Also possible septoplasty. Total operative time between 2 and 3 hours. Risks were discussed including bleeding infection damage to surrounding structures need for the procedures change in taste change in swallow damage to surrounding tissues CSF leak brain brain damage increased risk of meningitis. Change in vision total blindness. Septal perforation. Time-out for time off school. Her risk of meningitis inherent risk of narcotic use. They resolve symptoms need for further procedures. Change in cosmetic appearance. Damage to any structure of the clavicle by myself. Damage to any structures are induction and maintenance of anesthesia.
[2025-03-03] VITALS (12 sets, daily range): BP systolic 125–152; BP diastolic 85–94; PULSE 64–87; RESP 10–16; TEMP 36.1–36.3; O2SAT 92–100
--- OUTSIDE RECORDS SUMMARY | 2025-03-03 01:27 | XMS_ITS | Clinical Summary ---
Author Organization [facility] Care Team Providers Care Materials Mgmt Tech Name Role Phone Unavailable Primary Care Provider [...]
[2025-03-03] MEDS: LACTATED RINGERS 1,000 ML 30 ML IV CONT ×3 (11:15→18:20)
[2025-03-03] MEDS: ACETAMINOPHEN 500 MG TABLET 1000 MG PO (11:15)
--- NOTE | 2025-03-03 11:36 | WPDANESEPPF ---
Anes - Initial Pre Proc Eval Procedure: Operation Date: 03/03/25 11:30 Proposed Procedures p Image Guided Endoscopic Bilateral Maxillary Antrostomy, Bilateral Total Ethmoidectomy, Left Side Sphenoidotomy, - Rush Quintanilla MD s Endoscopic Assisted Septoplasty - Rush Quintanilla MD Date/Time: 03/03/25 11:36 Surgeon: Rush Quintanilla MD Pre Op Diagnosis: chron sinusitis, enlrg lymph nodes, dev septum Patient Data Age: 54 Gender: M Height: 1.8 m Weight: 90 kg Allergies Allergy/AdvReac Type Severity Reaction Status Date / Time naproxen Allergy Mild Hives Verified 03/03/25 11:30 milk AdvReac Intermediate Nausea Verified 03/03/25 11:30 ONIONS Allergy SOB, Uncoded 02/25/25 10:14 TINGLING LIPS Home Medications ?Medication ?Instructions ?Recorded ?Confirmed ?Type diclofenac sodium 75 mg 75 mg PO BID #180 tabs 06/14/24 03/03/25 Rx tablet,delayed release cefuroxime axetil 250 mg tablet 250 mg PO Q12H #20 tabs 03/01/25 Rx Patient hx anesthesia problems: post op nausea/vomiting (W one surgery in the past (shoulder). ) Family hx anesthesia problems: none Results Review: All pre-operative results and documents have been reviewed as part of the pre-operative evaluation. 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 History of chicken pox Surgical History Surgical History History of left inguinal hernia repair Family History Family History Sibling Depression Father Hypertension Family history of elevated blood lipids Mother Hypertension Family history of elevated blood lipids Grandparent Family history of cardiovascular disease Other Diabetes mellitus Social History Social History Social History: Caffeine-occasionally Smoking status: Never smoker Second hand tobacco smoke exposure: No Alcohol intake: current Alcohol use details: 2 PER MONTH Substance use: never Substance use type: does not use Do You Feel Safe in your Home?: Yes Lack of Transportation: No Lack of Food: Never True Current Housing: I Have Housing Concerned About Future Housing: No Difficulty Paying Gas/Electric Bills: No Difficulty Paying for Meds: No Currently Unemployed: No Education: Associate Degree Difficulty w/ Childcare or Family Care: No Living arrangements: with family Occupation/Education: occupation Gender identity (if verbalized by the patient): Male Spiritual care concerns: No Agree to blood products: Yes Anes - Eval Final PreProcedure Day of Procedure 03/03/25 11:36 Patient weight: normal Lungs: normal air movement Airway: Mallampati scale class II Neurological: alert and oriented Last oral intake: >/= 8 hours ASA classification: I Emergent: no Anesthetic plan: proceed Anesthesia type and monitoring: general ETT and standard monitoring Results Review: All pre-operative results and documents have been reviewed as part of the pre-operative evaluation. Active w walking over 10K steps daily in his job, no cp or sob. Informed Consent: The patient's anesthetic plan and its attendant risks and benefits were discussed with the patient/family/POA. Questions were solicited and answers provided to the satisfaction of the patient/family/POA.
--- NOTE | 2025-03-03 12:07 | WPDHPUPDATE1 ---
History and Physical Update Update Date/Time: 03/03/25 12:07 History and Physical has been reviewed, including an updated exam of the patient. There are NO changes in the patient's condition. Risks, benefits, and alternatives have been discussed and questions answered. Patient agrees to proceed with procedure. Other than, add right image guided sphenoidotomy.
[2025-03-03] MEDS: ceFAZolin 2 GM in SODIUM CHLORIDE 0.9% IV 50 ML 100 ML IVPB (12:20)
[2025-03-03] MEDS: LIDO 1%/EPINEPHRINE 1:100,000 20 ML VIAL 10 ML INFILTRATE (12:55)
[2025-03-03] MEDS: TOBRAMYCIN SULFATE 80 MG/2 ML VIAL 400 MG IRRIGATION (12:55)
[2025-03-03] MEDS: OXYMETAZOLINE HCL 0.05% NAS 15 ML BTL (*BKC) 1 SPRAY XX (12:58)
--- NOTE | 2025-03-03 15:16 | SUR.OPER ---
Two cultures sent with PCT Mehreen at 15:13. Cultures given to Clint at 15:16
[2025-03-03] MEDS: ONDANSETRON INJ 4 MG/2 ML VIAL IV PUSH (16:49)
--- NOTE | 2025-03-03 17:01 | W.PM.PROC2 ---
Procedure Note - Detailed Date of Procedure 03/03/25 Pre-op Diagnosis chron sinusitis, enlrg lymph nodes, dev septum Post-op Diagnosis Same Procedure Performed 1. Endoscopic assisted septoplasty 2. Bilateral image guided endoscopic maxillary antrostomies 3. Bilateral image guided endoscopic total ethmoidectomies 4. Bilateral image guided endoscopic sphenoidotomies Surgeon Rush Quintanilla MD Anesthesia General Indications See above Findings Severely deviated septum right greater than left obstructing the middle meatus on the right. Diseased inflamed mucosa throughout all the sinuses worse the maxillary sinuses bilateral sphenoid. Lesion which was concern for a encephalocele does not appear to be 1 on endoscopy. Photo documentation taken. Description of Procedure Consent verified I had patient identified in the preoperative holding area. Patient brought to the operating. Time-out performed. General anesthesia induced. Endotracheal tube secured airway. Patient prepped draped position procedure confirmed 2nd time-out performed. Image guidance initiated confirmed. Very very excellent image guidance. 0 degree scope utilized total 15 cc 1% lidocaine with 1 100,000 parts epinephrine checked the bilateral eyes septum. Sigifredo incision made left side. Left nasal septal flap elevated. Osteotome utilized to cross over. Right nasal septal flap elevated. No concomitant perforations. Deviated septum removed Peter forceps [place] Mendoza forceps and osteotome. Septum irrigated out a [place] incision closed with 4 interrupted 5 0 fast gut sutures. Maxillary antrostomies performed bilaterally under image guidance with double ball tip probe backbiter straight through cut warm water irrigations. Lots of purulence in the bilateral maxillary sinuses this was cultured. Total ethmoidectomies performed bilaterally with image guidance [place] straight through cut microdebrider as well as up-biting Giuliano sleeve. Sphenoidotomy performed with image guidance [place] sphenoid punch [place] microdebrider. Great care was taken to not injure any adjacent structures. Photo documentation taken of the right sphenoid cavity. The lesion was probed and Anesthesia Valsalva did not appear to be an encephalocele. Nova pack was placed bilaterally. Of note throughout the entire case the wounds were irrigated with sterile normal saline infused with 400 mg of tobramycin pursed L of sterile normal saline. Wall splints were then placed bilaterally ensured to be lateral to the middle turbinates and sutured anteriorly using a 3-0 mattress nylon suture. Blood loss 55 cc. I performed all dictated portion procedure. Care the patient given Anesthesiology. No complications. Patient taken to PACU. Estimated Blood Loss 56 Drains No Packing Yes Pathology None sent Complications No immediate complications Condition Stable Disposition PACU [facility] Billing Surgery - Charge Forward: Surgery Billing
[2025-03-03] MEDS: fentaNYL CITRATE INJ (*CRX) 100 MCG/2 ML VIAL 25 MCG IV PUSH (17:26)
[2025-03-03] MEDS: oxyCODONE HCL (*CRX) 5 MG TAB IR PO (17:43)
[2025-03-03] MEDS: SCOPOLAMINE 1 MG PATCH 1 PATCH TRANSDERM (18:11)
== END 2025-03-03 18:44 | disposition home or self-care (01) ==
PROVIDERS: PCP Nurse Practitioner Family; Visit Provider Otolaryngology
PROC: (CPT 30520; principal; 2025-03-03 11:30)
PROC: (CPT 30520; 2025-03-03 11:30)
DX: J34.2 Deviated nasal septum (principal); J32.9 Chronic sinusitis, unspecified; G89.18 Other acute postprocedural pain; G43.909 Migraine, unspecified, not intractable, without status migrainosus; M13.0 Polyarthritis, unspecified; Z98.890 Other specified postprocedural states; Z82.49 Family history of ischemic heart disease and other diseases of the circulatory system
CPT/HCPCS: 30520; 31256; 31257; 61782; 87070; 87186; 87205; J0690; A9270; J0330; J1100; J1200; J2003; J2004; J2250; J2405; J2704; J3010; J3260; J7120

== ENCOUNTER 2025-03-24 14:49 | Outpatient (CLI) | payer OTHER, SELFPAY ==
--- NOTE | ~2025-03-24 | MR_ITS ---
EXAMINATION: MR orbits face neck wo/w con DATE: 03/24/2025 15:43 INDICATION: Right sphenoid encephalocele. TECHNIQUE: Magnetic resonance imaging (MRI) of the face was performed without and with 19 mL MultiHance intravenous contrast. COMPARISON: CT sinuses 01/03/2025 FINDINGS: There is mucosal thickening and fluid in the paranasal sinuses. There are changes of uncinectomies and ethmoidectomies. The CT demonstrates dehiscence of the lateral wall of right sphenoid sinus. There is cerebral spinal fluid in the dehiscence (thin coronal T2-weighted FS FSE image 17 of 31), consistent with a meningocele. IMPRESSION: 1. 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 Reviewed, dictated and finalized at location E.
== END 2025-03-24 14:50 | disposition home or self-care (01) ==
PROVIDERS: PCP Nurse Practitioner Family; Visit Provider Otolaryngology
DX: Q01.8 Encephalocele of other sites (principal)
CPT/HCPCS: 70543; A9577

== ENCOUNTER 2025-04-14 14:32 | Outpatient (CLI) | payer OTHER, SELFPAY ==
--- NOTE | ~2025-04-14 | XR_ITS ---
EXAMINATION: XR abdomen/kub 1V, 04/14/2025 14:55 CDT HISTORY: Kidney stone on right side COMPARISON: No comparisons available. Technique: 3 view. Findings: Moderate fecal content, no dilated bowel loops, fecal content obscures evaluation for renal calculi No free air. No abnormal calcifications No acute osseous abnormality. Impression: 1. No acute abnormality. Reviewed, dictated and finalized at location P. Impression: 1. No acute abnormality.
== END 2025-04-14 14:33 | disposition home or self-care (01) ==
PROVIDERS: PCP Nurse Practitioner Family; Visit Provider Urology
DX: N20.0 Calculus of kidney (principal)
CPT/HCPCS: 74018